=== PATIENT | male | born 1965 | race Caucasian/White ===

== ENCOUNTER 2023-12-14 22:43 | Inpatient (IN) | payer BC, SELFPAY ==
[2023-12-14 22:50] VITALS: BP 169/99; PULSE 74; TEMP 36.7; O2SAT 99; BMI 32.0
--- NOTE | 2023-12-14 23:58 | ED_ITS ---
HPI - Abdominal Pain General Chief Complaint: Abdominal Pain Stated Complaint: ABD PAIN Time Seen by Provider: 12/14/23 23:54 Source: patient Mode of arrival: walk-in Limitations: no limitations History of Present Illness HPI narrative: developed heart burn last PM. Tried pepto bismol without success. Today tried quincy seltzer and vomited afterwards. No longer has heart burn but has epigastric pain and fullness. No longer nauseated. MD elicited complaint: Reports abdominal pain Related Data Home Medications ?Medication ?Instructions ?Recorded ?Confirmed aspirin 81 mg tablet,delayed 81 mg PO DAILY 12/15/23 12/15/23 release (Enteric Coated Aspirin) atorvastatin 40 mg tablet 40 mg PO DAILY 12/15/23 12/15/23 hydrochlorothiazide 25 mg tablet 25 mg PO DAILY 12/15/23 12/15/23 losartan 100 mg tablet (Cozaar) 100 mg PO DAILY 12/15/23 12/15/23 potassium chloride 10 mEq 20 meq PO DAILY 12/15/23 12/15/23 capsule,extended release Allergies Allergy/AdvReac Type Severity Reaction Status Date / Time No Known Drug Allergies Allergy Verified 12/14/23 22:54 Review of Systems ROS Status of ROS 10 or more systems reviewed and unremark able except as noted in history and below [facility] Medical History (Updated 12/15/23 @ 11:08 by Kimberlee Nguyen NP) Hyperlipidemia ?E78.5 - Hyperlipidemia, unspecified (ICD-10) Hypertension ?I10 - Essential (primary) hypertension (ICD-10) Broken jaw ?S02.609A - Fracture of mandible, unspecified, initial encounter for closed fracture (ICD-10) Hernia of abdominal wall ?K43.9 - Ventral hernia without obstruction or gangrene (ICD-10) Family History Father Family history of myocardial infarction Family history of hypertension Mother Family history of myocardial infarction Family history of hypertension Family history of diabetes mellitus Social History Within the past year, how often did you have a drink containing alcohol: never Within the past year, how often did you have six or more drinks on one occasion: never Score interpretation: A score less than 4 is consistent with normal alcohol consumption. 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 Highest level of school completed/degree received: 12th grade, no diploma Are you now , , , , never or living with a partner: In a typical week, how many times do you talk on the telephone with family, friends, or neighbors: once per week How often do you get together with friends or relatives: once per week How often do you attend caodaism or congregation services: never Do you belong to any clubs or organizations such as caodaism groups unions, [employer] or athletic groups, or school groups: yes Total score: 1 Score interpretation: A score of less than or equal to 1 indicates the most socially isolated. Little interest or pleasure in doing things: not at all Feeling down, depressed, or hopeless: not at all Feel stressed/tense/nervous/anxious/difficulty sleeping: not at all Gender Identity: male Exam Constitutional Vital Signs, click to edit/add: Last Vital Signs Temp 98.6 F 12/15/23 19:33 Pulse 64 12/15/23 19:33 Resp 18 12/15/23 19:33 BP 115/66 12/15/23 19:33 Pulse Ox 92 L 12/15/23 19:33 O2 Del Method Room Air 12/15/23 19:33 Common normals: no apparent distress, average body habitus, oriented x3, no limitations, healthy appearing, alert and well nourished [facility] Common normals: normocephalic and head/scalp atraumatic Eye Common normals: EOMs intact bilaterally and conjunctivae normal Chest Common normals: inspection of chest normal and palpation of chest normal Respiratory Common normals: normal respiratory effort, no retractions, no use of accessory muscles and clear to auscultation bilaterally Cardio Common normals: regular rate, regular rhythm, S1 normal heart sound and S2 normal heart sound GI Other: epigastric tenderness Extremity Common normals: normal to inspection and full ROM Neuro Common normals: oriented x3, CN's II-XII intact bilaterally, moves all extremities and no focal motor deficits Psych Appearance: grossly normal Course Vital Signs Vital signs: Vital Signs Temperature 98.1 F 12/14/23 22:50 Pulse Rate 74 12/14/23 22:50 Respiratory Rate 18 12/14/23 22:50 Blood Pressure 169/99 H 12/14/23 22:50 Pulse Oximetry 99 12/14/23 22:50 Oxygen Delivery Method Room Air 12/14/23 22:50 Temperature 98.6 F 12/15/23 19:33 Pulse Rate 64 12/15/23 19:33 Respiratory Rate 18 12/15/23 19:33 Blood Pressure 115/66 12/15/23 19:33 Pulse Oximetry 92 L 12/15/23 19:33 Oxygen Delivery Method Room Air 12/15/23 19:33 MDM - Abdominal Pain MDM Narrative Medical decision making narrative: patient presents complaining of abdominal pain that started yesterday. Emesis x 1. No fever. Points to mid epigastric area as site of pain. Site is tender without guarding. CT with findings concerning for acute cholecystitis. WBC elevated. Discussed with Dr Mcdonough who requested antibiotics, GB US and admission to hospitalist service. Discussed with hospitalist and patient accepted for admission Lab Data Labs: Lab Results 12/15/23 12/15/23 12/15/23 Range/Units 00:12 03:10 05:01 WBC 19.2 H 17.8 H (4.0-11.0) 10^3/uL RBC 5.04 5.05 (4.70-6.10) 10^6/uL Hgb 15.4 15.5 (14.0-18.0) g/dL Hct 45.9 46.7 (42.0-54.0) % MCV 91.1 92.5 (80.0-94.0) fL MCH 30.6 30.7 (25.9-34.0) pg MCHC 33.6 33.2 (29.9-35.2) g/dL RDW 12.8 13.0 (11.0-15.0) % Plt Count 239 250 (150-450) 10^3/uL MPV 10.4 11.3 (9.5-13.5) fL Neut % (Auto) 81.3 H (43.0-75.0) % Lymph % (Auto) 10.6 L (20.5-60.0) % Wayne % (Auto) 7.5 (1.7-12.0) % Eos % (Auto) 0.1 L (0.9-7.0) % Baso % (Auto) 0.2 (0.2-2.0) % Neut # (Auto) 14.5 H (1.4-6.5) 10^3/uL Lymph # (Auto) 1.9 (1.2-3.8) 10^3/uL Wayne # (Auto) 1.3 H (0.3-0.8) 10^3/uL Eos # (Auto) 0.0 (0.0-0.7) 10^3/uL Baso # (Auto) 0.0 (0.0-0.1) 10^3/uL Abs Immat Gran (auto) 0.05 H (0.00-0.03) 10^3/uL Seg Neuts % (Manual) 85.0 Band Neutrophils % 2.0 (0-5) % Lymphocytes % (Manual) 8.0 L (20.5-60.0) % Atypical Lymphs % (Man) 3.0 % Monocytes % (Manual) 2.0 (1.7-12.0) % Eosinophils % (Manual) 0.0 L (0.9-7.0) % Basophils % (Manual) 0.0 L (0.2-2.0) % Imm/Tot Granulo (auto) 0.3 (0.0-0.5) % Neutrophils # (Manual) 16.32 H (1.4-6.5) 10^3/uL Band Neutrophils # 0.4 H (0.0-0.3) 10^3/uL Lymphocytes # (Manual) 1.53 (1.20-3.80) 10^3/uL Abs Atypical Lymphs Man 0.57 Monocytes # (Manual) 0.38 (0.30-0.80) 10^3/uL Eosinophils # (Manual) 0.00 (0.00-0.70) 10^3/uL Basophils # (Manual) 0.00 (0.00-0.10) 10^3/uL Sodium 137 138 (136-145) mmol/L Potassium 3.7 3.5 (3.5-5.1) mmol/L Chloride 101 100 (98-107) mmol/L Carbon Dioxide 30.4 29.6 (21.0-32.0) mmol/L Anion Gap 9.3 11.9 BUN 19.0 H 19.0 H (7.0-18.0) mg/dL Creatinine 0.97 1.09 (0.70-1.30) mg/dL Est GFR ( Amer) >60 >60 (>=60) Est GFR (Non-Af Amer) >60 >60 (>=60) BUN/Creatinine Ratio 19.6 17.4 Glucose 125 H 123 H (74-106) mg/dL Lactate 2.0 2.1 H (0.4-2.0) mmol/L Calcium 9.9 9.6 (8.5-10.1) mg/dL Total Bilirubin 0.8 1.0 (0.2-1.0) mg/dL AST 13 L 11 L (15-37) U/L ALT 37 37 (16-63) U/L Alkaline Phosphatase 79 77 (46-116) U/L Troponin I High Sens 9.2 (4.0-76.1) pg/mL Total Protein 7.0 6.9 (6.4-8.2) g/dL Albumin 3.7 3.6 (3.4-5.0) g/dL Globulin 3.3 3.3 g/dL Albumin/Globulin Ratio 1.1 1.1 Amylase 40 (25-115) U/L Lipase 27.0 (16.0-77.0) U/L 12/15/23 12/15/23 Range/Units 05:26 09:48 WBC (4.0-11.0) 10^3/uL RBC (4.70-6.10) 10^6/uL Hgb (14.0-18.0) g/dL Hct (42.0-54.0) % MCV (80.0-94.0) fL MCH (25.9-34.0) pg MCHC (29.9-35.2) g/dL RDW (11.0-15.0) % Plt Count (150-450) 10^3/uL MPV (9.5-13.5) fL Neut % (Auto) (43.0-75.0) % Lymph % (Auto) (20.5-60.0) % Wayne % (Auto) (1.7-12.0) % Eos % (Auto) (0.9-7.0) % Baso % (Auto) (0.2-2.0) % Neut # (Auto) (1.4-6.5) 10^3/uL Lymph # (Auto) (1.2-3.8) 10^3/uL Wayne # (Auto) (0.3-0.8) 10^3/uL Eos # (Auto) (0.0-0.7) 10^3/uL Baso # (Auto) (0.0-0.1) 10^3/uL Abs Immat Gran (auto) (0.00-0.03) 10^3/uL Seg Neuts % (Manual) Band Neutrophils % (0-5) % Lymphocytes % (Manual) (20.5-60.0) % Atypical Lymphs % (Man) % Monocytes % (Manual) (1.7-12.0) % Eosinophils % (Manual) (0.9-7.0) % Basophils % (Manual) (0.2-2.0) % Imm/Tot Granulo (auto) (0.0-0.5) % Neutrophils # (Manual) (1.4-6.5) 10^3/uL Band Neutrophils # (0.0-0.3) 10^3/uL Lymphocytes # (Manual) (1.20-3.80) 10^3/uL Abs Atypical Lymphs Man Monocytes # (Manual) (0.30-0.80) 10^3/uL Eosinophils # (Manual) (0.00-0.70) 10^3/uL Basophils # (Manual) (0.00-0.10) 10^3/uL Sodium (136-145) mmol/L Potassium (3.5-5.1) mmol/L Chloride (98-107) mmol/L Carbon Dioxide (21.0-32.0) mmol/L Anion Gap BUN (7.0-18.0) mg/dL Creatinine (0.70-1.30) mg/dL Est GFR ( Amer) (>=60) Est GFR (Non-Af Amer) (>=60) BUN/Creatinine Ratio Glucose (74-106) mg/dL Lactate 2.3 H* 2.2 H* (0.4-2.0) mmol/L Calcium (8.5-10.1) mg/dL Total Bilirubin (0.2-1.0) mg/dL AST (15-37) U/L ALT (16-63) U/L Alkaline Phosphatase (46-116) U/L Troponin I High Sens (4.0-76.1) pg/mL Total Protein (6.4-8.2) g/dL Albumin (3.4-5.0) g/dL Globulin g/dL Albumin/Globulin Ratio Amylase (25-115) U/L Lipase (16.0-77.0) U/L Imaging Data CT scan - abdomen: Radiologist's impression: ITS Impressions Abdomen/Pelvis CT 12/15/23 00:00 IMPRESSION: 1. Cholelithiasis with a gallstone in the region of the gallbladder neck with gallbladder distention. These findings are concerning for acute cholecystitis. Consider further evaluation with a right upper quadrant examination. 2. Suspected hemangioma in the left hepatic lobe measuring up to 1.8 cm. 3. Scattered colonic diverticula without evidence of acute inflammation. 4. Normal appendix. Electronically authenticated by: Yesenia EDUARDO Date: 12/15/2023 03:04 Chest X-Ray 12/15/23 00:00 IMPRESSION: No acute cardiopulmonary abnormality. Electronically authenticated by: REESE LYONS Date: 12/15/2023 02:42 Upper Quadrant Ultrasound 12/15/23 07:00 IMPRESSION: 1. Cholelithiasis and abnormally dilated common bile duct, but no appreciable inflammatory changes to suggest acute cholecystitis. Negative sonographic Hayes's sign. Electronically authenticated by: ELIUD LEE Date: 12/15/2023 09:24 Discharge Plan Discharge Chief Complaint: Abdominal Pain Clinical Impression: Acute cholecystitis Patient Disposition: Admitted as Observation Discharge Date/Time: 12/15/23 04:55
[2023-12-15] VITALS (8 sets, daily range): BP systolic 115–153; BP diastolic 66–85; PULSE 63–74; TEMP 36.7–37.1; O2SAT 86–98; BMI 32.0
--- NOTE | 2023-12-15 | CT_ITS ---
The [address] [address] Patient Name: LANG HUBBARD MRN: [id number] date: 1965 Sex: M Assigned Patient Location: ER Current Patient Location: Accession/Order Number: [id number] Exam Date: 12/15/2023 00:55 Report Date: 12/15/2023 03:04 At the request of: OLGA RODRÍGUEZ Procedure: CT abdomen pelvis w con EXAM: CT abdomen pelvis w con HISTORY: abdominal pain COMPARISON: None. TECHNIQUE: Axial CT images through the abdomen and pelvis were obtained after the intravenous administration of contrast. Coronal and sagittal reformats were obtained. Dose reduction techniques were achieved by using automated exposure control and/or adjustment of mA and/or kV according to patient size and/or use of iterative reconstruction technique. FINDINGS: There is bibasilar atelectasis. Abdomen: The spleen enhances homogeneously without focal lesion. There is no intra or extrahepatic biliary duct dilatation. There is a 1.8 x 1.6 cm hemangioma in the left hepatic lobe (series 3, image 19). There is cholelithiasis with a gallstone in the region of the gallbladder neck. The gallbladder is distended measuring up to 11.0 cm in length. There are bilateral renal parapelvic cysts. There are scattered colonic diverticula without evidence of acute inflammation. Otherwise, the pancreas, adrenal glands, kidneys, and bowel loops, including the appendix, are unremarkable. There is no mesenteric or retroperitoneal lymphadenopathy. There is a small fat-containing periumbilical hernia. Pelvis: The bladder and rectum are unremarkable. There is no iliac or inguinal lymphadenopathy. There is a small fat-containing left inguinal hernia. There is mild atherosclerotic disease. Bone windows show no aggressive osseous lesions. CT/CT abdomen pelvis w con IMPRESSION: 1. Cholelithiasis with a gallstone in the region of the gallbladder neck with gallbladder distention. These findings are concerning for acute cholecystitis. Consider further evaluation with a right upper quadrant examination. 2. Suspected hemangioma in the left hepatic lobe measuring up to 1.8 cm. 3. Scattered colonic diverticula without evidence of acute inflammation. 4. Normal appendix. Electronically authenticated by: Yesenia EDUARDO Date: 12/15/2023 03:04
--- NOTE | 2023-12-15 | XR_ITS ---
The [place] [id number] Patient Name: LANG HUBBARD MRN: [id number] date: 1965 Sex: M Assigned Patient Location: ER Current Patient Location: ER Accession/Order Number: [id number] Exam Date: 12/15/2023 00:55 Report Date: 12/15/2023 02:42 At the request of: OLGA RODRÍGUEZ Procedure: XR chest 1V XR chest 1V 12/15/2023 12:55 AM EDT CLINICAL INDICATION: Chest pain COMPARISON: CT abdomen and pelvis 12/15/2023 TECHNIQUE: Portable semiupright AP view of the chest. FINDINGS: There are no tubes or implants noted. Borderline enlarged heart. No florid pulmonary interstitial edema. Bibasilar patchy opacities, likely atelectasis. No pneumothorax or pleural effusion. No displaced rib fractures. Osseous structures demonstrate degenerative changes. Soft tissues are grossly normal. XR/XR chest 1V IMPRESSION: No acute cardiopulmonary abnormality. Electronically authenticated by: REESE LYONS Date: 12/15/2023 02:42
[2023-12-15] MEDS: KETOROLAC TROMETHAMINE 30 MG/ML VIAL IVP (00:17)
[2023-12-15 00:21] LABS: Hematocrit 45.9 % (42.0-54.0); Hemoglobin 15.4 g/dL (14.0-18.0); Mean Corpuscular HGB Conc 33.6 g/dL (29.9-35.2); Mean Corpuscular Hemoglobin 30.6 pg (25.9-34.0); Mean Corpuscular Volume 91.1 fL (80.0-94.0); Mean Platelet Volume 10.4 fL (9.5-13.5); Platelet Count 239 10^3/uL (150-450); Red Blood Count 5.04 10^6/uL (4.70-6.10); Red Cell Distribution Width 12.8 % (11.0-15.0); White Blood Count 19.2 10^3/uL (4.0-11.0)
[2023-12-15 00:36] LABS: Alanine Aminotransferase 37 U/L (16-63); Albumin Globulin Ratio 1.1; Albumin Level 3.7 g/dL (3.4-5.0); Alkaline Phosphatase 79 U/L (46-116); Anion Gap 9.3; Aspartate Amino Transferase 13 U/L (15-37); BUN Creatinine Ratio 19.6; Bilirubin Total 0.8 mg/dL (0.2-1.0); Calcium 9.9 mg/dL (8.5-10.1); Carbon Dioxide 30.4 mmol/L (21.0-32.0); Chloride 101 mmol/L (98-107); Estimated GFR (African America >60 (>=60); Estimated GFR (Non-African Ame >60 (>=60); Globulin 3.3 g/dL; Glucose 125 mg/dL (74-106); Potassium 3.7 mmol/L (3.5-5.1); Sodium 137 mmol/L (136-145)
[2023-12-15 00:38] LABS: Amylase 40 U/L (25-115); Troponin I High Sensitivity 9.2 pg/mL (4.0-76.1)
--- NOTE | 2023-12-15 00:39 | PC.NURSE ---
Pt presents to ER for upper abdominal pain Pt states he woke up around 0130 last night and was experiencing heart burn/acid reflux Pt states it continued to bother him throughout the day Pt states he took some alkaseltzer which made him throw up pt states after throwing up the heart burn had decreased however he was left with pain in his upper abdomen Pt states the pain has since increased he had one small bowel movement and has not eaten or drank much at all throughout the day due to the pain pt has no relative medical history
[2023-12-15 00:51] LABS: Atypical Lymphocytes Abs Man 0.57; Band Neutrophils Absolute 0.4 10^3/uL (0.0-0.3); Lymphocytes Absolute Manual 1.53 10^3/uL (1.20-3.80); Monocytes Absolute Manual 0.38 10^3/uL (0.30-0.80); Segmented Neut Absolute Manual 16.32 10^3/uL (1.4-6.5)
[2023-12-15 03:32] LABS: Lactate/Lactic Acid 2.1 mmol/L (0.4-2.0)
[2023-12-15] MEDS: FENTANYL CITRATE/PF 100 MCG/2 ML VIAL 50 MCG IV (04:25)
[2023-12-15] MEDS: PIPERACILLIN SODIUM/TAZOBACTAM 3.375 GM in 0.9 % SODIUM CHLORIDE 50 ML IV ×3 (04:25→19:33)
[2023-12-15] MEDS: 0.9 % SODIUM CHLORIDE 1,000 ML 100 ML IV (05:42)
[2023-12-15 05:43] LABS: Alanine Aminotransferase 37 U/L (16-63); Albumin Globulin Ratio 1.1; Albumin Level 3.6 g/dL (3.4-5.0); Alkaline Phosphatase 77 U/L (46-116); Anion Gap 11.9; Aspartate Amino Transferase 11 U/L (15-37); BUN Creatinine Ratio 17.4; Calcium 9.6 mg/dL (8.5-10.1); Carbon Dioxide 29.6 mmol/L (21.0-32.0); Chloride 100 mmol/L (98-107); Estimated GFR (African America >60 (>=60); Estimated GFR (Non-African Ame >60 (>=60); Globulin 3.3 g/dL; Glucose 123 mg/dL (74-106); Potassium 3.5 mmol/L (3.5-5.1); Sodium 138 mmol/L (136-145); Total Protein 6.9 g/dL (6.4-8.2)
[2023-12-15 05:53] LABS: Lactate/Lactic Acid 2.3 mmol/L (0.4-2.0)
--- NOTE | 2023-12-15 07:00 | US_ITS ---
[address] [address] Patient Name: LANG HUBBARD MRN: [id number] date: 1965 Sex: M Assigned Patient Location: MS Current Patient Location: MS Accession/Order Number: [id number] Exam Date: 12/15/2023 07:15 Report Date: 12/15/2023 09:24 At the request of: ALESIA FUENTES Procedure: US right upper quadrant EXAMINATION: US right upper quadrant HISTORY: Cholecystitis per CT/epigastric pain COMPARISON: CT abdomen pelvis 12/15/2023 TECHNIQUE: Transabdominal evaluation of the right upper quadrant. FINDINGS: LIVER: Normal size and echotexture. Color Doppler demonstrates patent hepatic veins. PORTAL VEIN: Duplex Doppler demonstrates normal hepatopetal flow pattern with flow velocity averaging 22 cm/s. GALLBLADDER: Contains several stones up to 8 mm in diameter. Normal wall thickness, 2 mm. No free fluid. BILIARY: Abnormally dilated common bile duct, 9 mm. No appreciable stones or mass. PANCREASE: No visible mass, abnormal atrophy, or duct dilation. KIDNEY: No hydronephrosis. No visible mass or stones. Size: 9.4 x 5.9 x 6.2 cm US/US right upper quadrant IMPRESSION: 1. Cholelithiasis and abnormally dilated common bile duct, but no appreciable inflammatory changes to suggest acute cholecystitis. Negative sonographic Hayes's sign. Electronically authenticated by: ELIUD LEE Date: 12/15/2023 09:24
[2023-12-15 08:36] LABS: Basophils Percent Auto 0.2 % (0.2-2.0); Eosinophils Percent Auto 0.1 % (0.9-7.0); Hematocrit 46.7 % (42.0-54.0); Hemoglobin 15.5 g/dL (14.0-18.0); Immature Granulocytes Abs Auto 0.05 10^3/uL (0.00-0.03); Immature Granulocytes Pct Auto 0.3 % (0.0-0.5); Lymphocytes Absolute Auto 1.9 10^3/uL (1.2-3.8); Lymphocytes Percent Auto 10.6 % (20.5-60.0); Mean Corpuscular HGB Conc 33.2 g/dL (29.9-35.2); Mean Corpuscular Hemoglobin 30.7 pg (25.9-34.0); Mean Corpuscular Volume 92.5 fL (80.0-94.0); Mean Platelet Volume 11.3 fL (9.5-13.5); Monocytes Absolute Auto 1.3 10^3/uL (0.3-0.8); Monocytes Percent Auto 7.5 % (1.7-12.0); Neutrophils Absolute Auto 14.5 10^3/uL (1.4-6.5); Neutrophils Percent Auto 81.3 % (43.0-75.0); Platelet Count 250 10^3/uL (150-450); Red Blood Count 5.05 10^6/uL (4.70-6.10); White Blood Count 17.8 10^3/uL (4.0-11.0)
--- NOTE | 2023-12-15 09:31 | CA_ITS ---
Patient Name: LANG HUBBARD MR#: [id number] : 1965 Exam Date: 12/15/2023 Ordering Doctor: JAMES GARCIA ECHOCARDIOGRAM REPORT PROCEDURE: CA ECHO DOPPLER COMPLETE INDICATIONS: Murmur, preop eval COMPARISON: None. DESCRIPTION: COMPLETE ECHOCARDIOGRAM Real-time transthoracic echocardiography with 2D, M-mode, spectral and color flow Doppler performed. QUALITY: Technical quality was good. LEFT VENTRICLE: Normal chamber size. Mild concentric left ventricular hypertrophy. LV EF: Global left ventricular systolic function is hyperdynamic; visually estimated ejection fraction is 65-70%. Calculated left ventricular ejection fraction is 76%. No wall motion abnormalities. DIASTOLIC: Diastolic function is indeterminate. ATRIAL SEPTUM: Inadequately seen. LEFT ATRIUM: Mild dilatation. RIGHT ATRIUM: Mild dilatation. RIGHT VENTRICLE: Normal chamber size. Normal right ventricular systolic function. TRICUSPID VALVE: Normal mobility and thickness. No stenosis with trivial regurgitation. Mild pulmonary hypertension. RVSP 43mmHg MITRAL VALVE: Normal mobility and thickness. No evidence of mitral valve stenosis. There is no mitral annular calcification. Mild mitral regurgitation. AORTIC VALVE: Aortic valve appears bicuspid with nodular calcification. Doppler velocity suggests mild to moderate aortic valve stenosis. DVI 0.4, OSCAR 1.2cm2, Vmax 3.3m/s, Mean gradient 25mmHg. Velocities and gradients may be overestimated due to hyperdynamic global left ventricular systolic function. Mild aortic regurgitation. AORTIC ROOT: Normal diameter and appearance. Ascending aorta is mildly dilated measuring 3.9 cm. PULMONIC VALVE: Normal thickness and mobility. No stenosis. Trivial regurgitation. PERICARDIUM: No evidence of pericardial effusion. IVC: Collapses with inspirations. Normal size. CONCLUSION: 1. Global left ventricular systolic function is hyperdynamic; visually estimated ejection fraction is 65 to 70% 2. Normal right ventricular size and systolic function 3. Biatrial enlargement 4. Mildly increased left ventricular wall thickness 5. Mildly increased right ventricular systolic pressure; RVSP 43 mmHg 6. Mild mitral regurgitation 7. The aortic valve appears bicuspid; mild to moderate aortic valve stenosis 8. Mild aortic valve regurgitation Consider transesophageal echocardiogram in the future for further evaluation of the aortic valve Adult Echocardiography Procedure Report Left Ventricle LVEDD (3.7 - 5.6 cm): 4.86 cm LVESD (2.2 - 4.0 cm): 2.87 cm LVIVS thickness (0.6 - 1.2 cm): 1.26 cm LVPW thickness (0.5 - 1.0 cm): 1.07 cm e': 0.12 m/s E - e': 8.02 LVOT Max Gradient: 7.35 mm[Hg], 7.52 mm[Hg] LVOT Area (cm2): 1.36 m/s Peak Velocity (LVOT): 1.36 m/s, 1.37 m/s Mean Velocity (LVOT): 1.01 m/s LVOT Diameter 1.90 cm Left Ventricular Ejection Fraction: 76.45 % Left Atrium LA Volume Index (2D A2C): 36.93 ml/m2 Left Atrium Systolic Dimension: 3.91 cm Mitral Valve MV E to A Ratio: 1.20, 1.20 Mitral Valve A-Wave Peak Velocity: 0.79 m/s Mitral Valve E-Wave Peak Velocity: 0.95 m/s Right Ventricle RV Internal Diastolic Dimension: 4.07 cm, 4.05 cm Aorta AO Root Diam: 3.50 cm Ascending Ao Diam: 3.86 cm Aortic Valve AoV Area (Peak Gonsalo): 1.19 cm2, 1.17 cm2, 1.20 cm2 AoV Area (VTI): 1.27 cm2, 1.22 cm2, 1.26 cm2 Peak Velocity(Antegrade Flow): 3.27 m/s, 3.23 m/s, 3.33 m/s, 3.33 m/s, 3.08 m/s Peak Gradient(Antegrade Flow): 42.83 mm[Hg], 41.72 mm[Hg], 44.25 mm[Hg], 44.25 mm[Hg], 37.85 mm[Hg] Mean Velocity(Antegrade Flow): 2.42 m/s, 2.34 m/s, 2.35 m/s, 2.40 m/s, 2.11 m/s Mean Gradient(Antegrade Flow): 26.02 mm[Hg], 24.61 mm[Hg], 25.32 mm[Hg], 25.91 mm[Hg], 20.88 mm[Hg] Velocity Time Integral: 66.29 cm, 64.21 cm, 65.28 cm, 66.64 cm, 55.93 cm Tricuspid Valve Peak Velocity (Regurgitant Flow): 2.85 m/s, 2.34 m/s, 3.08 m/s Pulmonic Valve Mean Gradient: 2.51 mm[Hg], 3.92 mm[Hg], 4.02 mm[Hg] Mean Velocity: 0.76 m/s, 0.95 m/s, 0.96 m/s Peak Velocity: 1.18 m/s Peak Gradient: 4.19 mm[Hg], 6.65 mm[Hg], 6.15 mm[Hg] Right Atrium Right Atrium Systolic Pressure: 100.42 ml, 100.42 ml Dictated by: Yoana Agudelo M.D. on 12/15/2023 at 15:35 Approved by: Yoana Agudelo M.D. on 12/15/2023 at 15:43
--- NOTE | 2023-12-15 09:48 | CM.NOTE ---
Rounds made with Dr. Her, awaiting consult from general surgery for further recommendations. Pt continues with abdominal pain.
[2023-12-15] MEDS: LACTATED RINGER'S SOLUTION 1,000 ML 125 ML IV ×2 (09:57→15:58)
[2023-12-15] MEDS: LOSARTAN POTASSIUM 50 MG TABLET 100 MG PO (09:58)
[2023-12-15] MEDS: HYDROCHLOROTHIAZIDE 25 MG TABLET PO (09:58)
[2023-12-15 10:23] LABS: Lactate/Lactic Acid 2.2 mmol/L (0.4-2.0)
--- NOTE | 2023-12-15 10:49 | P.HP_ITS ---
<Statement entered by Terell Her MD - 12/16/23 11:29> This documentation has been reviewed and approved. Patient was seen and evaluated at the bedside. Case discussed with nurse practitioner. Agree with input and findings from nurse practitioner. Additional findings on my exam was an acute abdomen. Positive rebound tenderness on exam. Plan per surgery 1. HPI H&P: HPI History of Present Illness Chief complaint: ABD PAIN Narrative: 12/15/23 5207 This is a 58-year-old male patient with a relatively benign past medical history except for hypertension and hyperlipidemia; who presented to the ED last night complaining of severe and persistent epigastric pain. The patient reports awakening around 1:30 in the morning yesterday with severe heartburn and epigastric tenderness. He was unable to eat due to pain and experienced some dyspepsia. He attempted to take Laurie-Worden but vomited that up. He eventually presented to the ED for further evaluation as his pain was unrelenting. Workup in the ED revealed leukocytosis (19.2), mild dehydration with prerenal azotemia, and borderline lactic acidosis (2.0). All other labs were unremarkable. A CT of the abdomen and pelvis revealed cholelithiasis with an obstructing stone in the neck concerning for acute cholecystitis. Chest x-ray was unremarkable. He was initially admitted early this morning in observation for acute cholecystitis, but we have changed this to inpatient status as surgical intervention is expected and the patient is requiring IV fluids, and IV antibiotics. At the time of my exam the patient is resting quietly in bed. His pain is adequately controlled with IV Toradol at this time. We will add IVP morphine for breakthrough pain if needed. He denies any headache, dizziness, chest pain, or shortness of breath. He continues to note significant epigastric tenderness especially with palpation. He will be seen in consult by Dr. Mcdonough, general surgeon, who was informed of the consult by the ED provider. Opioid HPI Opioid Management Most Recent Opioid Data: Last Pain Scale 1 12/15/23 13:00 Last Pain Assessment 12/15/23 13:00 Last MAR Pain Assessment 12/15/23 12:16 Last ORT Total Score 0 12/15/23 05:18 Last ORT Risk Category Low Risk 12/15/23 05:18 Review of Systems ROS Status of ROS 10 or more systems reviewed and unremark able except as noted in history and below PFSH PFSH Medical History (Updated 12/15/23 @ 11:08 by Kimberlee Nguyen NP) Hyperlipidemia ?E78.5 - Hyperlipidemia, unspecified (ICD-10) Hypertension ?I10 - Essential (primary) hypertension (ICD-10) Broken jaw ?S02.609A - Fracture of mandible, unspecified, initial encounter for closed fracture (ICD-10) Hernia of abdominal wall ?K43.9 - Ventral hernia without obstruction or gangrene (ICD-10) Family History Father Family history of myocardial infarction Family history of hypertension Mother Family history of myocardial infarction Family history of hypertension Family history of diabetes mellitus Social History Within the past year, how often did you have a drink containing alcohol: never Within the past year, how often did you have six or more drinks on one occasion: never Score interpretation: A score less than 4 is consistent with normal alcohol consumption. 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 Little interest or pleasure in doing things: not at all Feeling down, depressed, or hopeless: not at all Feel stressed/tense/nervous/anxious/difficulty sleeping: not at all Gender Identity: male Meds Home Medications and Allergies Home Medications ?Medication ?Instructions ?Recorded ?Confirmed ?Type aspirin 81 mg tablet,delayed 81 mg PO DAILY 12/15/23 12/15/23 History release (Enteric Coated Aspirin) atorvastatin 40 mg tablet 40 mg PO DAILY 12/15/23 12/15/23 History hydrochlorothiazide 25 mg tablet 25 mg PO DAILY 12/15/23 12/15/23 History losartan 100 mg tablet (Cozaar) 100 mg PO DAILY 12/15/23 12/15/23 History potassium chloride 10 mEq 20 meq PO DAILY 12/15/23 12/15/23 History capsule,extended release Allergies Allergy/AdvReac Type Severity Reaction Status Date / Time No Known Drug Allergies Allergy Verified 12/14/23 22:54 Exam Constitutional Vital Signs, click to edit/add: Last Vital Signs Temp 98.7 F 12/15/23 09:09 Pulse 63 12/15/23 09:09 Resp 18 12/15/23 09:09 BP 137/77 12/15/23 09:09 Pulse Ox 98 12/15/23 09:09 O2 Del Method Room Air 12/15/23 09:09 Common normals: no apparent distress, oriented x3, alert and well nourished General appearance: cooperative Orientation/consciousness: Yes awake HENMT Common normals: normocephalic, head/scalp atraumatic, hearing grossly normal bilaterally, external nose normal and moist oral mucous membranes Eye Common normals: PERRL, EOMs intact bilaterally, conjunctivae normal and no scleral icterus Alignment: alignment normal Eyelid: eyelids normal Neck & C-Spine Common normals: full ROM, supple and no JVD Chest Common normals: inspection of chest normal Chest: symmetrical chest wall rise Respiratory Common normals: normal respiratory effort, no retractions, no use of accessory muscles and clear to auscultation bilaterally Effort & inspection: able to speak in complete sentences Cardio Common normals: no JVD, regular rate, regular rhythm, S1 normal heart sound, S2 normal heart sound, no gallops, no clicks, no rub and peripheral pulses 2+ throughout Heart sounds: murmur (HSM 3/6, low pitched) GI Common normals: Normal to inspection, nondistended, normoactive bowel sounds present, soft to palpation, no hepatosplenomegaly, no masses and no bruits Palpation: tender (Epigastric, w/o rebound or guarding) Bladder/kidney exam: bladder normal to palpation Back & Pelvis Common normals: thoracic and lumbar spine normal to inspection Extremity Common normals: normal capillary refill and no pedal edema General: normal exam except as noted; no clubbing and no cyanosis Neuro Michaela Coma Scale: GCS not evaluated Common normals: CN's II-XII intact bilaterally, moves all extremities, no focal motor deficits and no sensory deficits noted Speech: speech normal Motor exam: strength 5/5 throughout Psych Common normals: mental status grossly normal, thought process normal, affect normal and activity/motor behavior normal Results Labs Labs: Short CBC 12/15/23 12/15/23 Range/Units 00:12 05:01 WBC 19.2 H 17.8 H (4.0-11.0) 10^3/uL Hgb 15.4 15.5 (14.0-18.0) g/dL Hct 45.9 46.7 (42.0-54.0) % Plt Count 239 250 (150-450) 10^3/uL BMP 12/15/23 12/15/23 00:12 05:01 Sodium 137 138 Potassium 3.7 3.5 Chloride 101 100 Carbon Dioxide 30.4 29.6 BUN 19.0 H 19.0 H Creatinine 0.97 1.09 Glucose 125 H 123 H Calcium 9.9 9.6 Liver Function 12/15/23 12/15/23 Range/Units 00:12 05:01 Total Bilirubin 0.8 1.0 (0.2-1.0) mg/dL AST 13 L 11 L (15-37) U/L ALT 37 37 (16-63) U/L Alkaline Phosphatase 79 77 (46-116) U/L Albumin 3.7 3.6 (3.4-5.0) g/dL Pulse Oximetry Attestation: I have reviewed the pertinent pulse oximetry results. Imaging Chest x-ray: Attestation: I have reviewed the pertinent imaging results. Radiologist's impression: IMPRESSION: No acute cardiopulmonary abnormality. CT scan - abdomen: Attestation: I have reviewed the pertinent imaging results. Radiologist's impression: IMPRESSION: 1. Cholelithiasis with a gallstone in the region of the gallbladder neck with gallbladder distention. These findings are concerning for acute cholecystitis. Consider further evaluation with a right upper quadrant examination. 2. Suspected hemangioma in the left hepatic lobe measuring up to 1.8 cm. 3. Scattered colonic diverticula without evidence of acute inflammation. 4. Normal appendix. US - abdomen: Attestation: I have reviewed the pertinent imaging results. Radiologist's impression: IMPRESSION: 1. Cholelithiasis and abnormally dilated common bile duct, but no appreciable inflammatory changes to suggest acute cholecystitis. Negative sonographic Hayes's sign. Assessment and Plan Assessment and Plan (1) Acute cholecystitis: Assessment and Plan: Acute * Adm Inpatient * We expect greater than a 2 midnight stay for medically necessary hospital care including IV ABX, IVFs, specialty surgical intervention/care * C/s Dr Mcdonough, general surgeon - we appreciate his assistance with this pt's care * Pt is NPO for possible surgery later today * Preop eval - CXR WNL. EKG and 2D Echo ordered and are pending * NS IVF given overnight at 100/hr - change to LR at 125/hr d/t dehydration and lactic acidosis * IVPB Zosyn for underlying infectious process w/ persistent leukocytosis * Toradol PRN for pain, MS IVP for breakthrough pain not controlled by Toradol * Zofran IV for nausea * CBC, CMP daily (2) Dehydration: Assessment and Plan: Acute * D/t poor oral intake x 24 hrs 2/2 acute cholecystitis * Pre-renal azotemia noted on labs * Increase IVF rate to 125/hr * CMP daily (3) Lactic acidosis: Assessment and Plan: Acute * Lactic acid initially borderline at 2.0 in ED, slowly rising to 2.3 today * Repeat in 4 hrs to monitor * Increased IVF rate as noted above (4) Hypertension: Assessment and Plan: Chronic * Continue home Losartan and HCTZ w/ small sips Qualifiers: Hypertension type: primary hypertension Qualified Code(s): I10 - Essential (primary) hypertension (5) Hyperlipidemia: Assessment and Plan: Chronic * Continue home statin Qualifiers: Hyperlipidemia type: unspecified Qualified Code(s): E78.5 - Hyperlipidemia, unspecified
--- NOTE | 2023-12-15 11:06 | ECG_ITS ---
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
[2023-12-15] MEDS: PANTOPRAZOLE SODIUM 40 MG VIAL IV (12:12)
[2023-12-15] MEDS: ACETAMINOPHEN 325 MG TABLET 650 MG PO (12:16)
[2023-12-15 13:14] LABS: Lactate/Lactic Acid 1.6 mmol/L (0.4-2.0)
--- NOTE | 2023-12-15 13:49 | P.GSCN_ITS ---
History of Present Illness Consult details Consult date: 12/15/23 Reason for consult: gallstones Narrative: 58 y/o male presented to ED this morning after 24 hours of continuous epigastric pressure associated with vomiting on 1 occasion. He described the pain as a fullness; he tried Laurie-Umbarger without any effect. No hematochezia or any history of ulcer disease but has occasional reflux about once a year. Does not take any medication for this regularly. He currently rates his pain as a 2 out of 10 but when he came to the ED it was a 10 out of 10. He has not had pain medicine since then. He had eaten at [employer] on Thursday and had pork chops and fried shrimp and then went home and had pizza rolls and then became ill early Thursday morning awakening him from sleep. He has had this problem off and on for a few years. His PCP is with Dr. Jeffery Suero a nurse practitioner Azeb Hilliard. He had a CT scan of the abdomen and pelvis which showed probable acute cholecystitis although they recommended an ultrasound which was done earlier today and shows a stone in the neck of the gallbladder without acute inflammation but slightly dilated common bile duct. He is also found to have an incarcerated umbilical hernia. That has been present for years. All liver enzymes were grossly normal except for one of the SGPT. He denies any fevers or chills. His white count was 19,000 on admission and is currently down to 17,000 and he is currently on intravenous antibiotics and is NPO. He denies tobacco use or alcohol use on a regular basis. 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 Review of Systems ROS Status of ROS 10 or more systems reviewed and unremark able except as noted in history and below [facility] Medical History (Updated 12/15/23 @ 11:08 by Kimberlee Nguyen NP) Hyperlipidemia ?E78.5 - Hyperlipidemia, unspecified (ICD-10) Hypertension ?I10 - Essential (primary) hypertension (ICD-10) Broken jaw ?S02.609A - Fracture of mandible, unspecified, initial encounter for closed fracture (ICD-10) Hernia of abdominal wall ?K43.9 - Ventral hernia without obstruction or gangrene (ICD-10) Family History Father Family history of myocardial infarction Family history of hypertension Mother Family history of myocardial infarction Family history of hypertension Family history of diabetes mellitus Social History Within the past year, how often did you have a drink containing alcohol: never Within the past year, how often did you have six or more drinks on one occasion: never Score interpretation: A score less than 4 is consistent with normal alcohol consumption. 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 Highest level of school completed/degree received: 12th grade, no diploma Are you now , , , , never or living with a partner: In a typical week, how many times do you talk on the telephone with family, friends, or neighbors: once per week How often do you get together with friends or relatives: once per week How often do you attend scientologist or gnosticism services: never Do you belong to any clubs or organizations such as scientologist groups unions, [employer] or athletic groups, or school groups: yes Total score: 1 Score interpretation: A score of less than or equal to 1 indicates the most socially isolated. Little interest or pleasure in doing things: not at all Feeling down, depressed, or hopeless: not at all Feel stressed/tense/nervous/anxious/difficulty sleeping: not at all Gender Identity: male Meds Home Medications and Allergies Home Medications ?Medication ?Instructions ?Recorded ?Confirmed ?Type aspirin 81 mg tablet,delayed 81 mg PO DAILY 12/15/23 12/15/23 History release (Enteric Coated Aspirin) atorvastatin 40 mg tablet 40 mg PO DAILY 12/15/23 12/15/23 History hydrochlorothiazide 25 mg tablet 25 mg PO DAILY 12/15/23 12/15/23 History losartan 100 mg tablet (Cozaar) 100 mg PO DAILY 12/15/23 12/15/23 History potassium chloride 10 mEq 20 meq PO DAILY 12/15/23 12/15/23 History capsule,extended release Allergies Allergy/AdvReac Type Severity Reaction Status Date / Time No Known Drug Allergies Allergy Verified 12/14/23 22:54 Exam Constitutional Vital Signs, click to edit/add: Last Vital Signs Temp 98.7 F 12/15/23 09:09 Pulse 63 12/15/23 09:09 Resp 18 12/15/23 09:09 BP 137/77 12/15/23 09:09 Pulse Ox 98 12/15/23 09:09 O2 Del Method Room Air 12/15/23 09:09 Documenting provider has reviewed patient's vital signs: yes Common normals: no apparent distress, average body habitus, oriented x3, healthy appearing, alert and well nourished General appearance: cooperative and comfortable HENMT Common normals: normocephalic, moist oral mucous membranes and oropharynx normal Eye Common normals: EOMs intact bilaterally and no scleral icterus Respiratory Common normals: normal respiratory effort and clear to auscultation bilaterally Cardio Common normals: regular rate, regular rhythm and no murmurs GI Common normals: Normal to inspection, nondistended, normoactive bowel sounds present Inspection: central obesity and visible herniation (Incarcerated hernia umbilical 2 cm) Palpation: tender Details: RUQ and Hayes's sign and guarding Extremity Common normals: normal to inspection Neuro Common normals: oriented x3, CN's II-XII intact bilaterally and moves all extremities Results Labs Labs: Abnormal lab results 12/15/23 12/15/23 12/15/23 Range/Units 00:12 03:10 05:01 WBC 19.2 H 17.8 H (4.0-11.0) 10^3/uL Neut % (Auto) 81.3 H (43.0-75.0) % Lymph % (Auto) 10.6 L (20.5-60.0) % Eos % (Auto) 0.1 L (0.9-7.0) % Neut # (Auto) 14.5 H (1.4-6.5) 10^3/uL [place] # (Auto) 1.3 H (0.3-0.8) 10^3/uL Abs Immat Gran (auto) 0.05 H (0.00-0.03) 10^3/uL Lymphocytes % (Manual) 8.0 L (20.5-60.0) % Eosinophils % (Manual) 0.0 L (0.9-7.0) % Basophils % (Manual) 0.0 L (0.2-2.0) % Neutrophils # (Manual) 16.32 H (1.4-6.5) 10^3/uL Band Neutrophils # 0.4 H (0.0-0.3) 10^3/uL BUN 19.0 H 19.0 H (7.0-18.0) mg/dL Glucose 125 H 123 H (74-106) mg/dL Lactate 2.1 H (0.4-2.0) mmol/L AST 13 L 11 L (15-37) U/L 12/15/23 12/15/23 Range/Units 05:26 09:48 WBC (4.0-11.0) 10^3/uL Neut % (Auto) (43.0-75.0) % Lymph % (Auto) (20.5-60.0) % Eos % (Auto) (0.9-7.0) % Neut # (Auto) (1.4-6.5) 10^3/uL [place] # (Auto) (0.3-0.8) 10^3/uL Abs Immat Gran (auto) (0.00-0.03) 10^3/uL Lymphocytes % (Manual) (20.5-60.0) % Eosinophils % (Manual) (0.9-7.0) % Basophils % (Manual) (0.2-2.0) % Neutrophils # (Manual) (1.4-6.5) 10^3/uL Band Neutrophils # (0.0-0.3) 10^3/uL BUN (7.0-18.0) mg/dL Glucose (74-106) mg/dL Lactate 2.3 H* 2.2 H* (0.4-2.0) mmol/L AST (15-37) U/L Diabetes panel 12/15/23 12/15/23 Range/Units 00:12 05:01 Sodium 137 138 (136-145) mmol/L Potassium 3.7 3.5 (3.5-5.1) mmol/L Chloride 101 100 (98-107) mmol/L Carbon Dioxide 30.4 29.6 (21.0-32.0) mmol/L BUN 19.0 H 19.0 H (7.0-18.0) mg/dL Creatinine 0.97 1.09 (0.70-1.30) mg/dL Glucose 125 H 123 H (74-106) mg/dL Calcium 9.9 9.6 (8.5-10.1) mg/dL AST 13 L 11 L (15-37) U/L ALT 37 37 (16-63) U/L Alkaline Phosphatase 79 77 (46-116) U/L Total Protein 7.0 6.9 (6.4-8.2) g/dL Albumin 3.7 3.6 (3.4-5.0) g/dL Calcium panel 12/15/23 12/15/23 Range/Units 00:12 05:01 Calcium 9.9 9.6 (8.5-10.1) mg/dL Albumin 3.7 3.6 (3.4-5.0) g/dL Pituitary panel 12/15/23 12/15/23 Range/Units 00:12 05:01 Sodium 137 138 (136-145) mmol/L Potassium 3.7 3.5 (3.5-5.1) mmol/L Chloride 101 100 (98-107) mmol/L Carbon Dioxide 30.4 29.6 (21.0-32.0) mmol/L BUN 19.0 H 19.0 H (7.0-18.0) mg/dL Creatinine 0.97 1.09 (0.70-1.30) mg/dL Glucose 125 H 123 H (74-106) mg/dL Calcium 9.9 9.6 (8.5-10.1) mg/dL Adrenal panel 12/15/23 12/15/23 Range/Units 00:12 05:01 Sodium 137 138 (136-145) mmol/L Potassium 3.7 3.5 (3.5-5.1) mmol/L Chloride 101 100 (98-107) mmol/L Carbon Dioxide 30.4 29.6 (21.0-32.0) mmol/L BUN 19.0 H 19.0 H (7.0-18.0) mg/dL Creatinine 0.97 1.09 (0.70-1.30) mg/dL Glucose 125 H 123 H (74-106) mg/dL Calcium 9.9 9.6 (8.5-10.1) mg/dL Total Bilirubin 0.8 1.0 (0.2-1.0) mg/dL AST 13 L 11 L (15-37) U/L ALT 37 37 (16-63) U/L Alkaline Phosphatase 79 77 (46-116) U/L Total Protein 7.0 6.9 (6.4-8.2) g/dL Albumin 3.7 3.6 (3.4-5.0) g/dL All other labs normal. Imaging Abdomen CT scan report/results: report reviewed Abdominal ultrasound report/results: report reviewed Assessment and Plan Assessment and Plan (1) Acute cholecystitis: (2) Dehydration: (3) Lactic acidosis: (4) Hypertension: Qualifiers: Hypertension type: primary hypertension Qualified Code(s): I10 - Essential (primary) hypertension (5) Hyperlipidemia: Qualifiers: Hyperlipidemia type: unspecified Qualified Code(s): E78.5 - Hyperlipidemia, unspecified Plan Robotic cholecystectomy with IC-Green and repair of umbilical hernia incarcerated. Risks benefits and alternatives to surgery could include infection, bleeding, bile duct injury, blood clots to legs or lungs, recurrence of the hernia, pneumonia, heart attack, stroke, and/or . He and his voiced understanding of all the above and wished to proceed.
[2023-12-15] MEDS: INDOCYANINE GREEN 25 MG VIAL INJ (14:17)
--- NOTE | 2023-12-15 14:22 | PM.GSPRC ---
Date of procedure: 12/15/23 Indications for Procedure: Acute cholecystitis with cholelithiasis Incarcerated umbilical hernia Pre-op diagnosis: Acute cholecystitis with cholelithiasis/incarcerated umbilical hernia Post-op diagnosis: same as pre-op Procedure: Robotic cholecystectomy with IC-Green Repair of incarcerated umbilical hernia without mesh primary Findings: Acute gangrenous and empyematous cholecystitis with cholelithiasis Incarcerated umbilical hernia with omentum Anesthesia: COLEEN Surgeon: Mick Mcdonough Procedure Summary: After again explaining the risks and benefits of the procedure in the preoperative care unit consent was obtained. ?The patient was taken back to the operative room and placed on the operative room table. General endotracheal anesthesia was induced and preoperative antibiotics were given. ?Appropriate time-out was performed. ?Right arm was?tucked at the side. ?Then the bed was positioned appropriately. ?The abdomen was prepped and draped in normal sterile fashion. A periumbilical incision was made. ?Dissection was carried down to the fascia. ?Fascia was elevated and hernia sac was scored at its base. The sac removed from the underside of the umbilicus. The sac was entered and had incarcerated omentum within it. The omentum could not be reduced therefore hemostats were placed across the portion that was incarcerated and was clamped and suture-ligated with 0 Vicryl suture ties. This was then returned to the peritoneal cavity. A 12 mm port was placed into the abdomen and the abdomen was insufflated, there were no complications with insufflation. ?The scope and camera was brought in and then 3 more ports were placed. An 8?mm port was placed in the right lateral position. Two additional?8 mm Davinci ports were placed, 8 cm to the left and one to the right of the umbilicus. ?The patient was then placed in reverse Trendelenburg position and slightly turned to the left. The [employer] robot was docked. The 4th arm was used to grasp the dome of the gallbladder superiorly. ?The peritoneal attachments were taken down with meticulous dissection laterally and medially from the gallbladder. The gallbladder was taken down in retrograde fashion after it had burst open due to being so edematous and swollen. Suction was carried out. There was clear bile. ?At this point the infundibular gallbladder was retracted laterally and a critical view was obtained. ?With the cystic duct inferiorly cystic artery medially and the liver posteriorly. ?Two clips were placed on the patient side and 1 on the specimen side of both the cystic duct and the cystic artery. ?These were then excised. ?The remainder of the gallbladder was taken off of the gallbladder fossa using electrocautery. The gallbladder was then removed through the umbilical port using Endo-Catch bag. ?The gallbladder fossa was visualized again to confirm no bleeding and no leak from the cystic duct. The robot was undocked from the patient. The abdomen was deinsufflated.? The umbilical hernia was closed with a [id number] 0 Vicryl in interrupted fashion.. The skin was closed at all the incisions with 4 0 Monocryl. All incisions and underlying muscle was anesthetized with local anesthetic.?Dermabond was then placed over the incisions. The patient was extubated and had no immediate postoperative complications. Patient was taken to the PACU in stable condition. Telecine Operator: YUSEF Heart Estimated blood loss (mL): 50 Specimens: Gallbladder and stones Complications: No Condition: stable Disposition: PACU
[2023-12-15] MEDS: BUPIVACAINE HCL 0.5% PF 50 MG/10 ML VIAL 20 ML INJ (16:20)
[2023-12-15] MEDS: OXYCODONE HCL/ACETAMINOPHEN 5MG/325MG 1 TAB PO (18:31)
[2023-12-16] VITALS (10 sets, daily range): BP systolic 91–121; BP diastolic 57–78; PULSE 62–72; TEMP 36.1–36.9; O2SAT 90–97
[2023-12-16] MEDS: LACTATED RINGER'S SOLUTION 1,000 ML 125 ML IV ×2 (00:20→08:35)
--- NOTE | 2023-12-16 01:23 | PC.NURSE ---
Patient oxygen was 84-86 % Room air. I C&DB Patient for several minutes. I had to apply 3 liters Oxygen via [place]. He sats are now 94% with 3liters. I had RT assess him also. Notified Adolfo Brady CFO and he ordered Supplemental Oxygen and A PEP .Will continue to monitor Patient's condition.
[2023-12-16] MEDS: OXYCODONE HCL/ACETAMINOPHEN 5MG/325MG 1 TAB PO ×3 (02:05→18:16)
[2023-12-16] MEDS: PIPERACILLIN SODIUM/TAZOBACTAM 3.375 GM in 0.9 % SODIUM CHLORIDE 50 ML IV ×3 (02:33→19:56)
--- NOTE | 2023-12-16 04:50 | RESP.RT ---
decreased down to 2L
[2023-12-16 05:25] LABS: Basophils Percent Auto 0.2 % (0.2-2.0); Hematocrit 40.4 % (42.0-54.0); Hemoglobin 13.2 g/dL (14.0-18.0); Immature Granulocytes Abs Auto 0.11 10^3/uL (0.00-0.03); Immature Granulocytes Pct Auto 0.6 % (0.0-0.5); Lymphocytes Absolute Auto 1.2 10^3/uL (1.2-3.8); Lymphocytes Percent Auto 6.6 % (20.5-60.0); Mean Corpuscular HGB Conc 32.7 g/dL (29.9-35.2); Mean Corpuscular Hemoglobin 30.1 pg (25.9-34.0); Mean Platelet Volume 11.2 fL (9.5-13.5); Monocytes Absolute Auto 1.2 10^3/uL (0.3-0.8); Monocytes Percent Auto 6.1 % (1.7-12.0); Neutrophils Absolute Auto 16.2 10^3/uL (1.4-6.5); Neutrophils Percent Auto 86.5 % (43.0-75.0); Platelet Count 191 10^3/uL (150-450); Red Blood Count 4.39 10^6/uL (4.70-6.10); Red Cell Distribution Width 13.2 % (11.0-15.0); White Blood Count 18.8 10^3/uL (4.0-11.0)
[2023-12-16 05:46] LABS: Alanine Aminotransferase 51 U/L (16-63); Albumin Globulin Ratio 0.8; Albumin Level 2.7 g/dL (3.4-5.0); Alkaline Phosphatase 66 U/L (46-116); Anion Gap 11.3; Aspartate Amino Transferase 30 U/L (15-37); BUN Creatinine Ratio 17.3; Bilirubin Total 1.2 mg/dL (0.2-1.0); Calcium 8.6 mg/dL (8.5-10.1); Carbon Dioxide 27.9 mmol/L (21.0-32.0); Chloride 99 mmol/L (98-107); Estimated GFR (African America >60 (>=60); Estimated GFR (Non-African Ame >60 (>=60); Globulin 3.3 g/dL; Glucose 119 mg/dL (74-106); Potassium 3.2 mmol/L (3.5-5.1); Sodium 135 mmol/L (136-145)
--- NOTE | 2023-12-16 07:58 | XR_ITS ---
The [address] [address] Patient Name: LANG HUBBARD MRN: [id number] date: 1965 Sex: M Assigned Patient Location: [place] Current Patient Location: [place] Accession/Order Number: [id number] Exam Date: 12/16/2023 08:05 Report Date: 12/16/2023 08:17 At the request of: JAMES GARCIA Procedure: XR chest 1V EXAM: XR chest 1V HISTORY: Hypoxia COMPARISON: 12/15/2023 TECHNIQUE: AP portable FINDINGS: LUNGS: No significant pulmonary parenchymal abnormalities. Low lung volumes VASCULATURE: No increased pulmonary vasculature. PLEURA: No pneumothorax, effusion, or pleural thickening. CARDIAC: No cardiomegaly or cardiac silhouette abnormality. MEDIASTINUM: No visible mass or adenopathy. BONES: No fracture or visible bone lesion. OTHER: Negative. XR/XR chest 1V IMPRESSION: Low volume exam, clear lungs Electronically authenticated by: LAKISHA SANCHEZ Date: 12/16/2023 08:17
[2023-12-16] MEDS: LOSARTAN POTASSIUM 50 MG TABLET 100 MG PO (08:35)
[2023-12-16] MEDS: HYDROCHLOROTHIAZIDE 25 MG TABLET PO (08:36)
--- NOTE | 2023-12-16 09:34 | CM.NOTE ---
Rounds made with Dr. Her. Possible plan for discharge after Surgery evaluates. Await further plan from Surgery.
[2023-12-16] MEDS: PANTOPRAZOLE SODIUM 40 MG VIAL IV (11:37)
--- NOTE | 2023-12-16 12:10 | P.PN_ITS ---
<Statement entered by Terell Her MD - 12/17/23 20:45> This documentation has been reviewed and approved. Pt seen and exam,ined at bedside, agree with input and finding from Nurse practitioner. Additional note: Acute post op blood loss anemia Progress Note: Subjective Subjective Interval history: 12/16/23 0845 POD #1. The patient is sitting up in bed at the time of my exam having just finished a light breakfast of yogurt. He reports significant improvement of his abdominal discomfort, and only notes mild radha-incisional tenderness at this time. I reviewed with the patient and his spouse that Dr. Mcdonough noted a gangrenous gallbladder that ruptured on removal in his procedure note from yesterday. The patient's leukocytosis is slightly up from yesterday but this is likely at least in part a reactive process due to surgery. He has remained afebrile overnight. Close monitoring of his VS and labs is still indicated, and he needs to remain in the hospital for at least another 24 to 48 hours for continued monitoring due to his risk for sepsis and acute decompensation. Nursing noted that the patient desaturated overnight when he was sleeping soundly and required O2 supplementation for a few hours. The patient's spouse notes that he frequently stops breathing during sleep at home and undiagnosed LLOYD is suspected. Exam Constitutional Vital Signs, click to edit/add: Last Vital Signs Temp 97.0 F L 12/16/23 07:00 Pulse 72 12/16/23 07:46 Resp 16 12/16/23 07:46 BP 112/70 12/16/23 07:00 Pulse Ox 95 12/16/23 10:43 O2 Del Method Room Air 12/16/23 10:43 O2 Flow Rate 3 12/16/23 04:50 Common normals: no apparent distress, oriented x3 and alert General appearance: cooperative Orientation/consciousness: Yes awake HENRI Common normals: normocephalic, head/scalp atraumatic and hearing grossly normal bilaterally Eye Common normals: PERRL, EOMs intact bilaterally, conjunctivae normal and no scleral icterus General eye: normal appearance of both eyes Chest Common normals: inspection of chest normal Chest: symmetrical chest wall rise Respiratory Common normals: normal respiratory effort, no use of accessory muscles and clear to auscultation bilaterally Effort & inspection: able to speak in complete sentences Auscultation: diminished lung sounds (BLL) Cardio Common normals: regular rate, regular rhythm, S1 normal heart sound, S2 normal heart sound and peripheral pulses 2+ throughout Heart sounds: murmur (HSM 3/6) GI Common normals: Normal to inspection, nondistended, normoactive bowel sounds present, soft to palpation and no hepatosplenomegaly Palpation: tender (Radha-incisional to multiple sites, mild) Bladder/kidney exam: bladder normal to palpation Extremity Common normals: normal to inspection and no calf tenderness General: no clubbing, no cyanosis and no edema Neuro Common normals: CN's II-XII intact bilaterally, moves all extremities, no focal motor deficits and no sensory deficits noted Psych Common normals: mental status grossly normal Progress Note: Objective Labs Labs: Short CBC 12/16/23 Range/Units 04:29 WBC 18.8 H (4.0-11.0) 10^3/uL Hgb 13.2 L (14.0-18.0) g/dL Hct 40.4 L (42.0-54.0) % Plt Count 191 (150-450) 10^3/uL BMP 12/16/23 04:29 Sodium 135 L Potassium 3.2 L Chloride 99 Carbon Dioxide 27.9 BUN 18.0 Creatinine 1.04 Glucose 119 H Calcium 8.6 Liver Function 12/16/23 Range/Units 04:29 Total Bilirubin 1.2 H (0.2-1.0) mg/dL AST 30 (15-37) U/L ALT 51 (16-63) U/L Alkaline Phosphatase 66 (46-116) U/L Albumin 2.7 L (3.4-5.0) g/dL Progress Note: A&P Assessment and Plan (1) Acute cholecystitis: Assessment and Plan: Acute * Improved * Pain resolved except for mild post op pain * Leukocytosis persists, but pt remains afebrile * C/s Dr Mcdonough, general surgeon - we appreciate his assistance with this pt's care * POD#1 from lap cholecystectomy and hernia repair * GB reportedly gangrenous and ruptured intraoperatively * Reduce LR IVF to 75/hr - continue until pt is eating/drinking normally * Continue IVPB Zosyn for underlying infectious process w/ persistent leukocytosis * Continue PO Motrin and Percocet for post op pain per Dr Grillis' orders. IVP Dilaudid for breakthrough pain * Continue Zofran IV for nausea * CBC, CMP daily (2) Dehydration: Assessment and Plan: Acute * Improving * Continue IVF but decrease rate to 75/hr as pt is slowly starting to eat and drink * CMP daily (3) Lactic acidosis: Assessment and Plan: Acute * Resolved * Final lactic acid down to 1.6 yesterday (4) Hypokalemia: Assessment and Plan: Acute * Mild, K+ 3.2 on AM labs * Resume home daily KCL supplement in AM * KCL 40 meq PO x 1 now * CMP daily (5) Aortic stenosis due to bicuspid aortic valve: Assessment and Plan: Chronic * Mild to moderate stenosis w/ bicuspid valve noted on pre-op eval 2D Echo * Defer to PCP for monitoring as an outpatient (6) Hypertension: Assessment and Plan: Chronic * Continue home Losartan - BP well controlled on losartan alone * Hold home HCTZ d/t dehydration Qualifiers: Hypertension type: primary hypertension Qualified Code(s): I10 - Essential (primary) hypertension (7) Hyperlipidemia: Assessment and Plan: Chronic * Continue home statin Qualifiers: Hyperlipidemia type: unspecified Qualified Code(s): E78.5 - Hyperlipidemia, unspecified
[2023-12-16] MEDS: POTASSIUM CHLORIDE 10 MEQ ER TABLET 40 MEQ PO (13:39)
--- NOTE | 2023-12-16 15:40 | PM.GSPN ---
Progress Note: A&P Assessment and Plan (1) Acute cholecystitis: (2) Dehydration: (3) Lactic acidosis: (4) Hypokalemia: (5) Aortic stenosis due to bicuspid aortic valve: (6) Hypertension: Qualifiers: Hypertension type: primary hypertension Qualified Code(s): I10 - Essential (primary) hypertension (7) Hyperlipidemia: Qualifiers: Hyperlipidemia type: unspecified Qualified Code(s): E78.5 - Hyperlipidemia, unspecified Plan Continue IV antibiotics and postoperative care and encourage ambulation Subjective Subjective Patient reports: no new complaints, feels better, tolerating a regular diet and flatus Interval history: Spoke to patient by phone and I read hospitalist's note. Patient doing better but white blood count remains elevated and I agree with IV antibiotics until white blood count decrease his substantially Due to gangrenous cholecystitis. Exam Constitutional Vital Signs, click to edit/add: Last Vital Signs Temp 97.8 F 12/16/23 14:00 Pulse 65 12/16/23 14:00 Resp 16 12/16/23 14:00 BP 121/78 12/16/23 14:00 Pulse Ox 92 L 12/16/23 14:00 O2 Del Method Room Air 12/16/23 14:00 O2 Flow Rate 3 12/16/23 04:50
[2023-12-16] MEDS: LACTATED RINGER'S SOLUTION 1,000 ML 75 ML IV (16:38)
[2023-12-16] MEDS: ATORVASTATIN CALCIUM 40 MG TABLET PO (19:56)
[2023-12-17] MEDS: PIPERACILLIN SODIUM/TAZOBACTAM 3.375 GM in 0.9 % SODIUM CHLORIDE 50 ML IV (03:26)
[2023-12-17 04:00] VITALS: BP 133/76; PULSE 69; TEMP 37.1; O2SAT 93
[2023-12-17 04:49] VITALS: O2SAT 93
[2023-12-17 05:20] LABS: Basophils Percent Auto 0.2 % (0.2-2.0); Eosinophils Absolute Auto 0.1 10^3/uL (0.0-0.7); Eosinophils Percent Auto 0.6 % (0.9-7.0); Hematocrit 40.6 % (42.0-54.0); Hemoglobin 13.2 g/dL (14.0-18.0); Immature Granulocytes Abs Auto 0.02 10^3/uL (0.00-0.03); Immature Granulocytes Pct Auto 0.2 % (0.0-0.5); Lymphocytes Absolute Auto 1.9 10^3/uL (1.2-3.8); Lymphocytes Percent Auto 15.7 % (20.5-60.0); Mean Corpuscular HGB Conc 32.5 g/dL (29.9-35.2); Mean Corpuscular Hemoglobin 30.3 pg (25.9-34.0); Mean Corpuscular Volume 93.1 fL (80.0-94.0); Mean Platelet Volume 10.9 fL (9.5-13.5); Monocytes Absolute Auto 0.9 10^3/uL (0.3-0.8); Neutrophils Absolute Auto 9.4 10^3/uL (1.4-6.5); Neutrophils Percent Auto 76.3 % (43.0-75.0); Platelet Count 202 10^3/uL (150-450); Red Blood Count 4.36 10^6/uL (4.70-6.10); Red Cell Distribution Width 12.9 % (11.0-15.0); White Blood Count 12.3 10^3/uL (4.0-11.0)
[2023-12-17 05:45] LABS: Alanine Aminotransferase 45 U/L (16-63); Albumin Globulin Ratio 0.7; Albumin Level 2.7 g/dL (3.4-5.0); Alkaline Phosphatase 67 U/L (46-116); Anion Gap 10.1; Aspartate Amino Transferase 18 U/L (15-37); BUN Creatinine Ratio 13.7; Bilirubin Total 0.9 mg/dL (0.2-1.0); Carbon Dioxide 28.4 mmol/L (21.0-32.0); Chloride 100 mmol/L (98-107); Estimated GFR (African America >60 (>=60); Estimated GFR (Non-African Ame >60 (>=60); Globulin 3.9 g/dL; Glucose 97 mg/dL (74-106); Potassium 3.5 mmol/L (3.5-5.1); Sodium 135 mmol/L (136-145); Total Protein 6.6 g/dL (6.4-8.2)
[2023-12-17] MEDS: LACTATED RINGER'S SOLUTION 1,000 ML 75 ML IV (06:01)
[2023-12-17 08:00] VITALS: BP 150/79; PULSE 68; TEMP 36.8; O2SAT 94
[2023-12-17] MEDS: ACETAMINOPHEN 325 MG TABLET 650 MG PO (08:25)
[2023-12-17] MEDS: LOSARTAN POTASSIUM 50 MG TABLET 100 MG PO (08:25)
[2023-12-17] MEDS: POTASSIUM CHLORIDE 10 MEQ ER TABLET 20 MEQ PO (08:25)
[2023-12-17] MEDS: HYDROCHLOROTHIAZIDE 25 MG TABLET PO (09:30)
--- NOTE | 2023-12-17 09:30 | CM.NOTE ---
Pt up ad kalen in room when rounding with Dr. Her, discussed with pt discharge to home today. Pt will discharge on oral antibiotics. No other discharge needs identified.
--- NOTE | 2023-12-17 10:56 | P.DS_ITS ---
<Statement entered by Terell Her MD - 12/17/23 20:50> This documentation has been reviewed and approved. Pt seen and examined at bedside, agree with input and finding from Nurse practitioner. DS: Providers Provider Date of admission: 12/15/23 10:12 Primary care physician: Julianne-Staff MD Tita Consults: 12/15/23 03:42 Consult to General Surgeon Routine Consulting Provider: Mick Mcdonough Reason for consultation: Acute Cholecystitis per CT/Abdom pain RUQ Has provider been notified: Yes Discharging clinician: Kimberlee Nguyen DS: Diagnosis Discharge Diagnosis (1) Acute cholecystitis: (2) Dehydration: (3) Lactic acidosis: (4) Hypokalemia: (5) Aortic stenosis due to bicuspid aortic valve: (6) Hypertension: Qualifiers: Hypertension type: primary hypertension Qualified Code(s): I10 - Essential (primary) hypertension (7) Hyperlipidemia: Qualifiers: Hyperlipidemia type: unspecified Qualified Code(s): E78.5 - Hyperlipidemia, unspecified DS: Summary Hospital Course Hospital Course: The patient was admitted with an acute abdomen from acute cholecystitis and associated dehydration and lactic acidosis. He was made n.p.o. and treated with large-volume IV fluids and IVPB Zosyn. General surgery was consulted and the patient was seen by Dr. Mcdonough took the patient to the OR on 12/15/2023 for a robotic assisted lap cholecystectomy and hernia repair. The gallbladder was found to be gangrenous and ruptured during removal. The patient had persistent leukocytosis for the first 24 hours postoperatively and Levaquin was added to his antibiotic regimen. He continued to improve and his pain was mostly resolved other than mild radha-incisional pain. He tolerated a full diet and had a bowel movement prior to discharge. As the patient was doing well he was discharged home in stable condition. A course of antibiotics was continued for 7 more days with Cipro and Flagyl due to concern for intraoperative exposure of the peritoneal cavity to bacterial pathogens. The patient should follow-up with his PCP within 5 to [address] Mcdonough, general surgeon as scheduled per his office staff. We also clinically suspect LLOYD that is undiagnosed and we recommended an outpatient sleep study after discharge. Time Spent with Patient Time attestation: Total time spent providing and/or coordinating discharge services: Time spent: greater than 30 minutes Specific discharge activities: Physical exam, discussion of discharge plan, questions answered. Exam Constitutional Vital Signs, click to edit/add: Last Vital Signs Temp 98.3 F 12/17/23 08:00 Pulse 68 12/17/23 08:00 Resp 18 12/17/23 08:00 BP 150/79 H 12/17/23 08:00 Pulse Ox 94 L 12/17/23 08:00 O2 Del Method Room Air 12/17/23 08:00 O2 Flow Rate 3 12/16/23 04:50 Common normals: no apparent distress, oriented x3 and alert General appearance: cooperative Orientation/consciousness: Yes awake HENMT Common normals: normocephalic and head/scalp atraumatic Eye Common normals: PERRL, EOMs intact bilaterally, conjunctivae normal and no scleral icterus Neck & C-Spine Common normals: no JVD Respiratory Common normals: normal respiratory effort, no use of accessory muscles and clear to auscultation bilaterally Effort & inspection: able to speak in complete sentences and symmetric chest movement Cardio Common normals: no JVD, regular rate, regular rhythm, S1 normal heart sound, S2 normal heart sound and peripheral pulses 2+ throughout Heart sounds: murmur (HSM 3/6) GI Common normals: Normal to inspection, nondistended, normoactive bowel sounds present and soft to palpation Palpation: tender (Mild, radha-incisional tenderness) and rebound tenderness present (minimal) Bladder/kidney exam: bladder normal to palpation Extremity Common normals: normal to inspection, full ROM, normal capillary refill and no pedal edema General: no clubbing and no cyanosis Neuro Common normals: moves all extremities, no focal motor deficits and no sensory deficits noted Speech: speech normal Psych Common normals: mental status grossly normal and activity/motor behavior normal DS: Data Data Completed and Pending Labs on day of discharge: Labs from last 24 hours 12/17/23 04:45 WBC 12.3 H RBC 4.36 L Hgb 13.2 L Hct 40.6 L MCV 93.1 MCH 30.3 MCHC 32.5 RDW 12.9 Plt Count 202 MPV 10.9 Neut % (Auto) 76.3 H Lymph % (Auto) 15.7 L [place] % (Auto) 7.0 Eos % (Auto) 0.6 L Baso % (Auto) 0.2 Neut # (Auto) 9.4 H Lymph # (Auto) 1.9 [place] # (Auto) 0.9 H Eos # (Auto) 0.1 Baso # (Auto) 0.0 Abs Immat Gran (auto) 0.02 Imm/Tot Granulo (auto) 0.2 Sodium 135 L Potassium 3.5 Chloride 100 Carbon Dioxide 28.4 Anion Gap 10.1 BUN 16.0 Creatinine 1.17 Est GFR ( Amer) >60 Est GFR (Non-Af Amer) >60 BUN/Creatinine Ratio 13.7 Glucose 97 Calcium 9.0 Total Bilirubin 0.9 AST 18 ALT 45 Alkaline Phosphatase 67 Total Protein 6.6 Albumin 2.7 L Globulin 3.9 Albumin/Globulin Ratio 0.7 Imaging Chest x-ray: Radiologist's impression: 12/15/23 IMPRESSION: Low volume exam, clear lungs 12/16/23 IMPRESSION: Low volume exam, clear lungs CT scan - abdomen: Radiologist's impression: IMPRESSION: 1. Cholelithiasis with a gallstone in the region of the gallbladder neck with gallbladder distention. These findings are concerning for acute cholecystitis. Consider further evaluation with a right upper quadrant examination. 2. Suspected hemangioma in the left hepatic lobe measuring up to 1.8 cm. 3. Scattered colonic diverticula without evidence of acute inflammation. 4. Normal appendix. US - abdomen: Radiologist's impression: IMPRESSION: 1. Cholelithiasis and abnormally dilated common bile duct, but no appreciable inflammatory changes to suggest acute cholecystitis. Negative sonographic Hayes's sign. 2D Echo: Radiologist's impression: CONCLUSION: 1. Global left ventricular systolic function is hyperdynamic; visually estimated ejection fraction is 65 to 70% 2. Normal right ventricular size and systolic function 3. Biatrial enlargement 4. Mildly increased left ventricular wall thickness 5. Mildly increased right ventricular systolic pressure; RVSP 43 mmHg 6. Mild mitral regurgitation 7. The aortic valve appears bicuspid; mild to moderate aortic valve stenosis 8. Mild aortic valve regurgitation Consider transesophageal echocardiogram in the future for further evaluation of the aortic valve Discharge Plan Discharge Disposition: Home, Self-Care Discharge Medications: New oxycodone-acetaminophen [Percocet] 5-325 mg tablet 1 tab PO Q6H PRN (Reason: pain) Qty: 14 0RF ciprofloxacin HCl 500 mg tablet 500 mg PO BID 7 Days Qty: 14 0RF metronidazole 500 mg tablet 500 mg PO BID 7 Days Qty: 14 0RF Continued atorvastatin 40 mg tablet 40 mg PO DAILY potassium chloride 10 mEq capsule, extended release 20 meq PO DAILY losartan [Cozaar] 100 mg tablet 100 mg PO DAILY aspirin [Enteric Coated Aspirin] 81 mg tablet,delayed release (DR/EC) 81 mg PO DAILY hydrochlorothiazide 25 mg tablet 25 mg PO DAILY Activity: return to work once cleared by your PCP/specialist Diet: advance to your usual diet Print Language: Iranian Patient Instructions: Ciprofloxacin (By mouth), Oxycodone/Acetaminophen (By mouth), Metronidazole (By mouth), Laparoscopic Cholecystectomy (DC) Activity Restrictions/Additional Instructions: - Recommend sleep study for suspected LLOYD Forms: Portal Instructions Follow Up Appointments: December 22 @ 5:30pm with Azeb Hilliard NP [phone] December 29 @ 2:30pm with Dr. Mcdonough [address] [place] [phone] Discharge Date/Time: 12/17/23 11:17
--- NOTE | 2023-12-22 15:41 | CM.DCFOLLOWU ---
Person spoke with: patient How are you feeling? well How is your pain? no pain Did you understand your discharge instructions? yes Do you have any questions about your discharge instructions? no Were you given any prescriptions at discharge? yes Were you able to get your prescriptions filled? yes Do you understand how to take your medications as ordered? yes Do you have any questions about your follow up appointment and do you plan to keep your follow up appointment? no questions, follow ups reviewed Is there anything else that you would like to discuss? no Questions/Comments/Concerns/Other: N/A
== END 2023-12-17 11:17 | disposition home or self-care (01) | DRG 418 ==
LOC: ER 12-15 03:39 → MS 12-15 05:07
PROVIDERS: Nurse Practitioner Acute Care; Surgery; Admitting Provider Family Medicine; Emergency Provider Internal Medicine; Visit Provider Nurse Practitioner
PROC: 0FT44ZZ Resection of Gallbladder, Percutaneous Endoscopic Approach (ICD-10-PCS; principal; 2023-12-15 14:30)
DX: K80.00 Calculus of gallbladder with acute cholecystitis without obstruction (principal); D62 Acute posthemorrhagic anemia; E87.20 Acidosis, unspecified; K42.0 Umbilical hernia with obstruction, without gangrene; Q23.1 Congenital insufficiency of aortic valve; E86.0 Dehydration; K82.A1 Gangrene of gallbladder in cholecystitis; I10 Essential (primary) hypertension; E78.5 Hyperlipidemia, unspecified; E87.6 Hypokalemia; R10.0 Acute abdomen; Z79.82 Long term (current) use of aspirin; Z79.899 Other long term (current) drug therapy; Z82.49 Family history of ischemic heart disease and other diseases of the circulatory system; Z83.3 Family history of diabetes mellitus
CPT/HCPCS: 36415; 71045; 74177; 76705; 80053; 82150; 83605; 83690; 84484; 85007; 85025; 85027; 88302; 88304; 93005; 93306; 94667; 94668; 94761; 96361; 96365; 96366; 96375; 96376; 99285; J1094; J2704; Q9967

== ENCOUNTER 2024-05-23 19:14 | Emergency (ER) | payer BC, SELFPAY ==
[2024-05-23 19:35] VITALS: BP 175/103; PULSE 57; TEMP 36.5; O2SAT 97; BMI 32.0
--- OUTSIDE RECORDS SUMMARY | 2024-05-23 19:39 | XMS_ITS | CCD ---
Author Organization [facility] Inform ion Partnership [facility] Care Team Providers Care Machine Operator Cane Cutter Name Role Phone RAINA ONTIVEROS Admitting Unavailable RAINA ONTIVEROS Attending Unavailable SELF, REFERRED Referring Unavailable ELIUD GREEN Primary Care Unavailable [place] Procedure Practitioner Unavailab RAINA Deshpande Surgeon Unavailable SC Procedure Practitioner Unavailab CORNEL Whyte Surgeon Unavailable Lang Mcdonough Attending Unavailable Lang Mcdonough Admitting Unavailable DO Lang Mcdonough Attending Provider Azeb Hilliard Attending Unavailable Babak Azeb Primary Care Unavailable Gonaicha Azeb Primary Care Unavailable GonAzeb holcomb Attending Unavailable Gonaicha Azeb Primary Care Unavailable Gonaicha Azeb Admitting Unavailable Azeb Hilliard Attending Unavailable Medications Current Medications Medication Drug Class(es) Dates Sig (Normalized) Sig (Original) acetaminophen 325 mg / oxyCODONE hydrochloride 5 mg oral tablet (1 source) Opioid Agonist Start: 02-25-2019 take 1 tablet by mouth every four to six hours Oxycodone-Acetamino phen Active 1 TAB PO EVERY 4-6 HOURS 15 4 February 25, 2019 chlorhexidine gluconate 1.2 mg/ml mouthwash (1 source) Start: 02-25-2019 Chlorhexidine Gluconate (Peridex) 0.12 % mouthwash Active 12 PERCENT MUCOUS MEM Twice daily 600 February 25, 2019 12:00am Use 15 ml and rinse mouth for at least 30 secs ibuprofen 800 mg oral tablet (1 source) Nonsteroidal Anti-inflammatory Drug Start: 02-25-2019 take 800 mg by mouth every six hours Ibuprofen Active 800 MG PO Q6H 20 February 25, 2019 12:00am penicillin v potassium 500 mg oral tablet (1 source) Start: 02-25-2019 take 500 mg by mouth four times daily Penicillin V Potassium Active 500 MG PO Four times daily 20 02February 25, 2019 12:00am Problems Problem Classification Problem Date Documented Da te Episodic/Chronic Open wounds of head; neck; and trunk (2 sources) Scalp laceration; Translations: [Laceration without foreign body of scalp, initial encounter] 07-08-2023 Episodic Other circulatory disease (1 source) Elevated blood pressure; Translations: [Elevated blood-pressure reading, without diagnosis of hypertension] 07-08-2023 Episodic Other injuries and conditions due to external causes (1 source) Injury of head; Translations: [Unspecified injury of head, initial encounter] 07-08-2023 Episodic Skull and face fractures (1 source) Open fracture of mandible; Translations: [Fracture of mandible, unspecified, initial encounter for open fracture] 07-08-2023 Episodic Results Test Name Value Interpretation Reference Range Facility [facility] 12-31-2023 Outside Records [id number]# [address] Lab - Other Lab [facility] - Other Lab Results [id number]# [address] [place] [address] Outside [facility] 12-23-2023 Outside Records [id number]# [address] Outside Records [id number]# [address] [place] [address] Patient Handouton 12-23-2023 Patient Handout Cardiovascular Hypertension, Adult High blood pressure (hypertension) is when the force of blood pumping through the arteries is too strong. The arteries are the blood vessels that carry blood from the heart throughout the body. Hypertension forces the heart to work harder to pump blood and may cause arteries to become narrow or stiff. Untreated or uncontrolled hypertension can lead to a heart attack, heart failure, a stroke, kidney disease, and other problems. A blood pressure reading consists of a higher number over a lower number. Ideally, your blood pressure should be below 120/80. The first ( top ) number is called the systolic pressure. It is a measure of the pressure in your arteries as your heart beats. The second ( bottom ) number is called the diastolic pressure. It is a measure of the pressure in your arteries as the heart relaxes. What are the causes? The exact cause of this condition is not known. There are some conditions that result in high blood pressure. What increases the risk? Certain factors may make you more likely to develop high blood pressure. Some of these risk factors are under your control, including: ? Smoking. ? Not getting enough exercise or physical activity. ? Being overweight. ? Having too much fat, sugar, calories, or salt (sodium) in your diet. ? Drinking too much alcohol. Other risk factors include: ? Having a personal history of heart disease, diabetes, high cholesterol, or kidney disease. ? Stress. ? Having a family history of high blood pressure and high cholesterol. ? Having obstructive sleep apnea. ? Age. The risk increases with age. What are the signs or symptoms? High blood pressure may not cause symptoms. Very high blood pressure (hypertensive crisis) may cause: ? Headache. ? Fast or irregular heartbeats (palpitations). ? Shortness of breath. ? Nosebleed. ? Nausea and vomiting. ? Vision changes. ? Severe chest pain, dizziness, and seizures. How is this diagnosed? This condition is diagnosed by measuring your blood pressure while you are seated, with your arm resting on a flat surface, your legs uncrossed, and your feet flat on the floor. The cuff of the blood pressure monitor will be placed directly against the skin of your upper arm at the level of your heart. Blood pressure should be measured at least twice using the same arm. Certain conditions can cause a difference in blood pressure between your right and left arms. If you have a high blood pressure reading during one visit or you have normal blood pressure with other risk factors, you may be asked to: ? Return on a different day to have your blood pressure checked again. ? Monitor your blood pressure at home for 1 week or longer. If you are diagnosed with hypertension, you may have other blood or imaging tests to help your health care provider understand your overall risk for other conditions. How is this treated? This condition is treated by making healthy lifestyle changes, such as eating healthy foods, exercising more, and reducing your alcohol intake. You may be referred for counseling on a healthy diet and physical activity. Your health care provider may prescribe medicine if lifestyle changes are not enough to get your blood pressure under control and if: ? Your systolic blood pressure is above 130. ? Your diastolic blood pressure is above 80. Your personal target blood pressure may vary depending on your medical conditions, your age, and other factors. Follow these instructions at home: Eating and drinking ? Eat a diet that is high in fiber and potassium, and low in sodium, added sugar, and fat. An example of this eating plan is called the DASH diet. DASH stands for Dietary Approaches to Stop Hypertension. To eat this way: ? Eat plenty of fresh fruits and vegetables. Try to fill one half of your plate at each meal with fruits and vegetables. ? Eat whole grains, such as whole-wheat pasta, brown rice, or whole-grain bread. Fill about one fourth of your plate with whole grains. ? Eat or drink low-fat dairy products, such as skim milk or low-fat yogurt. ? Avoid fatty cuts of meat, processed or cured meats, and poultry with skin. Fill about one fourth of your plate with lean proteins, such as fish, chicken without skin, beans, eggs, or tofu. ? Avoid pre-made and processed foods. These tend to be higher in sodium, added sugar, and fat. ? Reduce your daily sodium intake. Many people with hypertension should eat less than 1,500 mg of sodium a day. ? Do not drink alcohol if: ? Your health care provider tells you not to drink. ? You are , may be , or are planning to become . ? If you drink alcohol: ? Limit how much you have to: ? 0?1 drink a day for women. ? 0?2 drinks a day for men. ? Know how much alcohol is in your drink. In the [place] one drink equals one 12 oz bottle of beer (355 mL), one 5 oz glass of wine (148 mL), or one 1? oz glass (more content not included)... [facility] 12-15-2023 L Specimen: [id number] Received: 12/16/23 Status: MARIBELL Restrepo Num: [id number] Spec Type: Surgical Subm Dr: Lang Mcdonough,DO Tissues: A Gallbladder (GALLBLADDER) B Hernia Sac (HERNIA SAC WITH CONTENTS) Procedures: HE/2, Gross/Micro L3, Gross/Micro L2 Age/ Patient Sex Location Account Attending Physician Lang Hubbard 58/M LABELL [id number] Lang Mcdonough DO SPEC NUM: [id number] RECD: 12/16/23 STATUS: MARIBELL RESTREPO NUM: [id number] ANNALISE: 12/15/[address] [facility] [address]: Lang Mcdonough DO ENTERED: 12/16/23 [facility] DR: Cesario,Lab SPEC TYPE: Surgical DEPT: AMY MELTON ORDERED: HE/2, Gross/Micro L3, Gross/Micro L2 ORDERED: HE/2, Gross/Micro L3, Gross/Micro L2 Pathological Diagnosis A. Gallbladder, cholecystectomy: Hemorrhagic cholecystitis and cholelithiasis. B. Hernia sac, umbilical, resection: Features consistent with hernia sac and contents. Clinical Information Abdominal pain, incarcerated umbilical hernia. Gross Description A. Received in formalin, labeled with the patient's name, date of and gallbladder is a previously disrupted gallbladder measuring 9.1 cm in length by 3.4 cm in average diameter. The serosal surface is sotelo-purple and dusky. The adjacent hepatic surface is sotelo and roughened. The clamped cystic duct measures 0.2 cm in diameter. No cystic duct lymph node is present. Opening into the specimen reveals roughened, hemorrhagic mucosa containing multiple brown bosselated stones within the central lumen and obstructing the cystic duct, ranging from 0.5 to 0.7 cm. No discrete masses or polyps are present in the gallbladder wall measures 0.1 cm in thickness. Holistic Pulser sections are submitted in A1. B. Received in formalin, labeled with the patient's name, date of and hernia sac and contents is a 5.1 x 3.4 x 1.5 cm portion of soft adipose tissue. Cut sections demonstrate unremarkable, lobulated and homogenous surfaces. Holistic Pulser sections are submitted in B1. -------- Specimen: [id number] Received: 12/16/23 Status: MARIBELL Restrepo Num: [id number] Spec Type: Surgical Subm Dr: Lang Mcdonough DO Tissues: A Gallbladder (GALLBLADDER) B Hernia Sac (HERNIA SAC WITH CONTENTS) Procedures: HE/2, Gross/Micro L3, Gross/Micro L2 -------- Patient: Lang Hubbard [id number] (Continued) -------- Specimen: [id number] Received: 12/16/23 (Continued) Signed (signature on file) Naz Johnson MD 12/17/23 1625 -------- Specimen: [id number] Received: 12/16/23 Status: MARIBELL Restrepo Num: [id number] Spec Type: Surgical Subm Dr: Lang Mcdonough DO Tissues: A Gallbladder (GALLBLADDER) B Hernia Sac (HERNIA SAC WITH CONTENTS) Procedures: HE/2, Gross/Micro L3, Gross/Micro L2 -------- Patient: Lang Hubbard [id number] (Continued) -------- Specimen: [id number] Received: 12/16/23 (Continued) CPT Codes 74909 [id number] -------- -------- Specimen: [id number] Received: 12/16/23 Status: MARIBELL Restrepo Num: [id number] Spec Type: Surgical Subm Dr: Lang Mcdonough DO Tissues: A Gallbladder (GALLBLADDER) B Hernia Sac (HERNIA SAC WITH CONTENTS) Procedures: HE/2, Gross/Micro L3, Gross/Micro L2 -------- Patient: Lang Hubbard Marissa [id number] (Continued) -------- Signed (signature on file) Naz Johnson MD 12/17/23 1625 [place] [facility] Reminder Messageson 08-26-19 Reminder Messages - From: Azeb Hilliard APRN, TONG To: [facility] ([email or web address]); Sent: 08/24/2023 09:42:15 EST ! Show up: 08/24/2023 09:42:15 EST Subject: Results Follow Up Actions: Call the patient with result(s) Due Date/Time: 08/25/2023 09:42:00 EST Reminder Comments: ok Results: Date Result Name Ind Value Ref Range 08/21/2023 8:27 Sodium Level 136.0 mmol/L (136.0 - 144.0) 08/21/2023 8:27 Potassium Level 4.1 mmol/L (3.6 - 5.1) 08/21/2023 8:27 Chloride Level 104 mmol/L (101 - 111) 08/21/2023 8:27 CO2 23 mmol/L (21 - 32) 08/21/2023 8:27 Anion Gap 13.1 mmol/L (5.0 - 19.0) 08/21/2023 8:27 Glucose Level 113.0 mg/dL (74.0 - 118.0) 08/21/2023 8:27 BUN 19 mg/dL (8 - 26) 08/21/2023 8:27 Creatinine Level 1.07 mg/dL (0.90 - 1.30) 08/21/2023 8:27 BUN/Creat Ratio ((H)) 17.7 (4.6 - 16.2) 08/21/2023 8:27 eGFR AA >60 mL/min/1.73m2 08/21/2023 8:27 eGFR Non AA >60 mL/min/1.73m2 08/21/2023 8:27 Calcium Level 9.3 mg/dL (8.9 - 10.3) 08/21/2023 8:27 Bili Total 0.6 mg/dL (0.3 - 1.2) 08/21/2023 8:27 Alk Phos 68 IU/L (32 - 91) 08/21/2023 8:27 AST/SGOT 30 IU/L (15 - 41) 08/21/2023 8:27 ALT/SGPT 44.0 IU/L (17.0 - 63.0) 08/21/2023 8:27 Protein Total 6.9 gm/dL (6.5 - 8.1) 08/21/2023 8:27 Albumin Level 4.2 gm/dL (3.5 - 5.0) 08/21/2023 8:27 Globulin 2.7 gm/dL (1.5 - 4.3) 08/21/2023 8:27 A/G Ratio 1.5 (1.4 - 2.6) 08/21/2023 8:27 Osmolality 275 mOsm/L 08/21/2023 8:27 Cholesterol 161.0 mg/dL (66.0 - 200.0) 08/21/2023 8:27 HDL ((L)) 37 mg/dL (40 - 71) 08/21/2023 8:27 Chol/HDL Ratio 4.3 (0.0 - 4.5) 08/21/2023 8:27 LDL 88 mg/dL (1 - 100) 08/21/2023 8:27 Trig ((H)) 180.0 mg/dL (0.0 - 150.0) 08/21/2023 8:27 VLDL. 36 mg/dL (5 - 40) 08/21/2023 8:27 PSA Screen 1.28 ng/mL (0.00 - 4.00) Attempted to call patient. Unable to LVM Attempted to call patient. Unable to LVM Attempted to call patient. Unable to LVM [facility] Coding Summaryon 08-25-2023 Coding Summary HTMLBase 64 TthvmwneKCp3xQd+PGhlY WQ+LX6EGPNrV50rxVIzoR 1xA1BUMZeOKsbzTGPWCBr WKxZpgdNiIX5shPYoJYFp IC8+GI2dGOZpZopneDCdi 8V1bCF2I93tir3wMSngqL S0RGUzBtCffnshl7dvlUi 6IDcuNmluOyBt VTQprD50YVE6oK91Mb00c ISagLYyz2zheNl4DxOiHG FrLRA0eHqtCXzdv3YdROU jQ17tiNKog8H8 RPCgqCdhcMQoHmPqjQY7i S0nFSqkglytk3ahiikwOg g6oq95mPSoe0S7lLX9I0Y vvaP0EQCijUIs ZhsjhYZWdT1xokffz9qdj wjeRnRmNFGqSLq0PDy9GO YukHsgGjVcWK74WXD8YQB qpmRaI4SxCSHs tEsmWjL0v9X5Vf8WH6AWF pxxE6JHPXPXKSwhbRC+PC 10ia98M3DlKkwmUkv2XXT nGYE0pJV1xP5r HETtFWkaa3B1gWX7B4Chc tPxzr2sg2gtVFMeKHuwI1 4czOCac2K6EUNwqWG2DBX dqDkkFjNizK01 Oyc+KGDitVweo1OfOzhez 2tsy9xpyVd7MxdpQYHuji NomOqxNGK7i0QuSc7xYQD daMG8qYF1cP0n VvYeEtK2MMpuD578DzKyy CZyIwiyF97mT5KivNJ+PH IeXac4ZYIpdBroKB0uF4I hZGRpbmctbGVm nKzpSQ4tKKXtnyusDWDop L2iWCXsD8u7KfGyHvZ0ZA dqU6LbTHApbjzbPf80hN8 lLpYlEiF7BZeo K3AkxuX0EARgaFRtNArxV KA9X11go8L2BZBpBSDkDL F6qIX4yB0rpWxhcxdshLK mdDsgdmVydGlj NMmjTAowL770HLOpxIhbA kNvZGluZyBEYXRlOiAgMD EvMzAvMjAyNDwvdGQ+PHR zGPS5yWkfTUSi eUEdNHltMg3jlFkggTtrP O3uZOKwhgwtIOForI8lNN GeaEBxnDflXC9nAPEdoir ix060OkKbTYQ4 GSQyvHSrT0KqeD7qNfTpI UMeCPCxL8SomEXiBUwdO6 75SJieFqI0FZFmivHmM4J sLWFsaWduOiB0 g5G3Tc0Et6VtagyvT7Udc RWwSxPcDmshRVx6Z4MsZr wvdHI+TQ47DMHyPC41TWt 8SXW0qNzmIRar WIVqN4DzbS6tQrVfXXEoD GRkOyc+PHRhYmxlIHdpZH RoPScxMDAlJyBzdHlsZT0 xMa8gNPIkGJAn cFgoiCSeRpZic6haOQNtI NkmJN9dbNoiB0AhfQJ8JY Cak7j1Wp99J75iO5VyjAA +UQIweRO8wSQ2 xV3bRjVsMvD0JPlfA303C kMbbYPvSxnzh5dgz1uhlB c9OsS9XEHmnmXzkYlaHQP 8t7RmFa68F97h IHdpZHRoPSIxNSUiIHZhb Btaiz0prB0oRo0+PGNvbC I0jFX1yR4iMuTeOzT7MCn mH484EwBgrPSl Glesp8dnx7iapAx7QkJfQ FXjphPmvVzxKLC6j9QsGr 81K9AzsTwvl2PvAue4pd2 6dBWyh9I2rMM3 S0UwFTIczfjbeTNsyOwoP O2wNPHqemapGTSsgD9aOU IpL4f5BaVuNhB9UGyvN1Y gixZ8DUBbzSVm WFBpyERUuL3vyutln1ape fyzUmRiQWQjQVj7NKh8VG IqeAyvVcVyHMG8KyZ6HTG 4vYPbgI1itOvd cxpmlL3aYxi+QJJ4zAXty LJAAU9lMprgkRD+PHRkIH Q4kVboFKeyMLSubN3tQIA hA3k0DdDkAfV8 LUayY9OgslH2LBLleJHtO KYdkDFLoO4pknvfm8yzpt ghSlCsZNBjEYg7XQd0MFG saWduOiBsZWZ0 EgO5THP1iCSxyA3bmDwoe engmW3qTzz+QmlydGggRG F9ZIo1Q4BuQqp0LZEedJp xQU4dcOPfSHvr Qa9ghWinpJfjNV8dZPDui dimo739JsLfv7prCSNqpI LgYMbaOIQ7P68or6D2RTY rDKBkGMS6yGB1 gB4tvVrnedjrgHUxpBljn sSndVpkNAapNBrrU762TQ XtwRfzYeFuAGv4Z4KkBwd 6ZJOgzRppUB9h mHMiAKshXu5kjKqlkPqvK V8zMXEyguxjk585BiBur9 glUDQovWByAXvvSNQ9B24 yg7O9FSIuOSFm GAS1yXG2kA8tnUaldcqyo GVmdDsgdmVydGljYWwtYW ntZ621VQSztJtyLfObdTc 2F8KdWmg5AGDr oLuxMJ4ikYSuYTdjDw4fr KxywYhmMF9mXNUrqhzed6 86DrPib3ajTZDmdOIsTGp iDPJ9Z58nk4M7 MKVpEENbLGN8hVT4yQ4yp GlnbjogbGVmdDsgdmVydG usIVeoQLzsT831ZJNexWz nPlBhdGllbnQg GGydGAm2R9JjJruktWJ+P T93JQWrTG73bMWmcMLvn6 omtSv5MhBqWASrCDZ8xUj pVOacs1BrGZCc M01bdJYfq5I9DTPxxGdts ORiZuUqlMS8aT8vFDqnuq lzd2skglpjVitzt2rcwc6 5mX81G33mNOka ZHRoPSIzMCUiIHZhbGlnb o3raR0iSi3+ZNFkqSJ9zF B5vA3iNCPhMaL4UCkjX74 9InRvcCIvPjxj m5yja5qzpSj6ZxF7LNHfr sKaxHioADG3f3AnCy86N0 9sIHdpZHRoPSIyMCUiIHZ ppKivjm4ohT0m Ii8+UFPasFN6qMM4jP3yP gJuXqP1LWjdS802HuCbcM YmEoajM22cM2ZneVZ+PHR rThd1XAIttBfx DI1lyGNgOFlbNp6tVEB4A rYsPrQxNAikW2EySZNrej fueuzitAT7GLThTZJhxO2 4Rd9brVoySDYh hJSCgX5mwfmcr3qmfmdbE hTnYPOkXKs8MSk8IHTaiO xlSwZzJSL8IuR8RNL4kTS ziD3khUpiubgd hJ6fC2HiZYXrmfwbQp12a B4kPlOhZaO7QQfgHop+SE FMTElFUiwgTUlDSEFFTCB EQVZJRDwvdGQ+ BQTjOAU2fAymMVfgXUUsf U8jAYBoS6u1WcAbLdE0VE gqT0HzYSZjhupnYh27aI1 pTuQxOfV1HQsk K3YenxA8FWGzyXCoLDyzZ HB4S61er6M0EJIeRHTzEP H0hVU8fG4ebPwqoazicHL mdDsgdmVydGlj ORihOYheM795SXPueCyhW tG2ObK7LxT4IqR6P5CtQz o4AEOxnCwcCJ5tbHBpNKg iPx6opCheiUib FY3pXZAgyoewPZVrcJ1kE UAcmEPbrWzkCA1dMYEwjm hnq220LwOzEQW1NTZxdRJ mD0DgzR9qLsZz ZFVdLOQpM8WtqCRzWAdpQ 382ALwsAxH3JZVggiIjA2 RtFTUluAmrWuI9q5T7Mu5 1OCBZZWFyczwv dGQ+XAAbCKT0jMkvVOdyH HPkuX5mOEItR9c7SeCvIy G1LXpwH2XxYBQfctveHz8 5iT1uObLaLtJ6 KZbrP8CgjzR2FUEtuYGdR CriEMU3R95ar5B7TDReZT MhYVW8tFN4lF0yyCxqhmy gbGVmdDsgdmVy eBprXAqpKGrwC851DINqg UsnZn1EXPE5E1TxDir3GD KmmWszAX6qqJHaUFbzFq3 aiWmlhUuxPJ9t VOSqfpepWJAkqZ5fJXFrp VIqjOavSI8aZSVxlfprm5 69TcVwQXC3NLEzkXZuV5W wyA4bXuYoYDLk WHAbD8XlpOMlHNqaD926Q YmcMeN7TYSujvDyP0EgRK SgkMkfOsD0z4U3Za5QWUu vdGQ+OG39wi74 I4NkVlykKyn4RKBcKSN4s NP1lN9kHSIwLZumd2D4oI A6V6IezyGfvp4xq2xmFGL iYMckG77tfDVb v6W5YZJpdLE0WZDjaTjrH sEgpY91Cdh+PGNvbGdyb3 ExLpcuc7loh1fveWn0CkI wJSIgdmFsaWdu BLI5c0FtQr99W02eKEewR HRoPSIzMCUiIHZhbGlnbj 7qmS7sNo1+ZTIruAZ1nWM 0uR3jPdZbMdI7 JQaaA457UgCuvGPsNkkxz 8scy8nybOk5ByDoBSOojg OriMikPUB9i0ViJz47J1A bgRdek9TwHzd4 xr39vDMbz4E8jIM5Q1GjH DSlnbrcyQTyvHclRY5xQA XwmuepUYEhjZ1hYWNrI6v 6WpRwTgR3RTpi Q0CqqyW5YYKdvLUbUBOqb UOEkD9gnkdaf8lxwwsoEk GdZAMhBJk0BFq1QMUrvVn yUcMgMLI1IfE3 HCZ8uVRvhU8zqZfppmkxw G9wOyc+MJy0q6oucPIxGI 7hxGA0UD58YE51aVRqn7B 9eHN7V0LdQSVa wkrodlwycDX5EOOcXBUyr K70Qk2glBoxDz6qTHRuWI M5GZVxqAWrV8GriX6kWmI cONFlGBLeW3Zo dHAnPLyaO512WYmzUtT2M HDpdiOeN7HwDXNnfLxjOk J5y6I2Dl2YRX51JQ76XT4 4fRHlu8M7wCM7 X2BkUSEfwdyjneqjnKG8A MLeMXBzxN68Bi9flGytQm 3xNAGdHEZ8VMBybQGlT3R vcI6fQgLwKZGp RUUtO0WmcXPdWOglX718R PzdKcY6MLPlejJoG7UgUV HirZxsBcH8i1G5Nw6DXq7 4KR29OF90hLJp c7O5uOD0E4DzTOQnajefp pnixTW3UHNsTNYnyA30Rz 7wuGpwJd6gYCTeUGV3RJT yqLIaG0VlbE5t OqXnXAEqFCJmG1TtwDAtY GkhH421QGgyOmX1YOTdre LwA9HuYKJpkOntYoE2l7O 9Lw4HBWxcech0 N6SvTsphbUZ+KY20MKBlS A31bXJpcJYmg3juaZc6Xo UwKLXuMVL5aYmmHBezc6L sNBIoX48trGRa c2U (more content not included)... Normal [facility] Standardon 08-21-2023 eGFR Non AA >60 Invalid Interpretation Code [facility] Comment on above: Performed By: #### 1 [id number] #### [facility] (DEFAULT) [address] [place] [address] 63494 eGFR AA >60 Invalid Interpretation Code [facility] Comment on above: Performed By: #### 1 [id number] #### [facility] (DEFAULT) [address] [place] [address] 36791 Albumin [Mass/Vol] 4.2 g/dL Normal 3.5-5.0 [facility] Comment on above: Performed By: #### 1 [id number] #### [facility] (DEFAULT) [address] [place] [address] 34235 Albumin/Globulin [Mass ratio] 1.5 {ratio} Normal 1.4-2.6 [facility] Comment on above: Performed By: #### 1 [id number] #### [facility] (DEFAULT) [address] [place] [address] 53703 Alk Phos 68 IU/L Normal 32-91 [facility] Comment on above: Performed By: #### 1 [id number] #### [facility] (DEFAULT) [address] [place] [address] 15548 ALT [Catalytic activity/Vol] 44.0 U/L Normal 17.0-63.0 [facility] Comment on above: Performed By: #### 1 [id number], [id number] #### [facility] (DEFAULT) [address] [place] [address] 35201 Anion gap [Moles/Vol] 13.1 mmol/L Normal 5.0-19.0 [facility] Comment on above: Performed By: #### 1 [id number] #### [facility] (DEFAULT) [address] [place] [address] 41408 AST [Catalytic activity/Vol] 30 U/L Normal 15-41 [facility] Comment on above: Performed By: #### 1 [id number], [id number] #### [facility] (DEFAULT) [address] [place] [address] 78623 Bili Total 0.6 mg/dL Normal 0.3-1.2 [facility] Comment on above: Performed By: #### 1 [id number], [id number] #### [facility] (DEFAULT) [address] [place] [address] 76469 Calcium [Mass/Vol] 9.3 mg/dL Normal 8.9-10.3 [facility] Comment on above: Performed By: #### 1 [id number], [id number], [id number] #### [facility] (DEFAULT) [address] [place] [address] 95367 Chloride [Moles/Vol] 104 mmol/L Normal 101-111 [facility] Comment on above: Performed By: #### 1 [id number], [id number] #### [facility] (DEFAULT) [address] [place] [address] 81345 CO2 [Moles/Vol] 23 mmol/L Normal 21-32 [facility] Comment on above: Performed By: #### 1 [id number], [id number] #### [facility] (DEFAULT) [address] [place] [address] 96219 Creatinine [Mass/Vol] 1.07 mg/dL Normal 0.90-1.30 [facility] Comment on above: Performed By: #### 1 [id number], [id number] #### [facility] (DEFAULT) [address] [place] [address] 71012 Globulin (S) [Mass/Vol] 2.7 g/dL Normal 1.5-4.3 [facility] Comment on above: Performed By: #### 1 [id number], [id number], [id number] #### [facility] (DEFAULT) [address] [place] [address] 09081 Glucose [Mass/Vol] 113.0 mg/dL Normal 74.0-118.0 [facility] Comment on above: Performed By: #### 1 [id number], [id number], [id number] #### [facility] (DEFAULT) [address] [place] [address] 56750 Osmolality 275 mOsm/L Invalid Interpretation Code [facility] Comment on above: Performed By: #### 1 [id number], [id number] #### [facility] (DEFAULT) [address] [place] [address] 87380 Potassium [Moles/Vol] 4.1 mmol/L Normal 3.6-5.1 [facility] Comment on above: Performed By: #### 1 [id number], [id number], [id number] #### [facility] (DEFAULT) [address] [place] [address] 96059 Protein [Mass/Vol] 6.9 g/dL Normal 6.5-8.1 [facility] Comment on above: Performed By: #### 1 [id number], [id number], [id number] #### [facility] (DEFAULT) [address] [place] [address] 97853 Sodium [Moles/Vol] 136.0 mmol/L Normal 136.0-144.0 [facility] Comment on above: Performed By: #### 1 [id number], [id number], [id number] #### [facility] (DEFAULT) [address] [place] [address] 52384 Urea nitrogen [Mass/Vol] 19 mg/dL Normal 8-26 [facility] Comment on above: Performed By: #### 1 [id number], [id number] #### [facility] (DEFAULT) [address] [place] [address] 14155 Urea nitrogen/Creatini ne [Mass ratio] 17.7 mg/mg High 4.6-16.2 [facility] Comment on above: Performed By: #### 1 [id number], [id number], [id number] #### [facility] (DEFAULT) [address] [place] [address] 26120 Lipid Panel Standardon 08-21 Cholesterol [Mass/Vol] 161.0 mg/dL Normal 66.0-200.0 [facility] Comment on above: Performed By: #### 1 [id number], [id number], [id number] #### [facility] (DEFAULT) [address] [place] [address] 22781 Cholesterol in HDL [Mass/Vol] 37 mg/dL Low 40-71 [facility] Comment on above: Performed By: #### 1 [id number], [id number] #### [facility] (DEFAULT) [address] [place] [id number] Cholesterol in LDL [Mass/Vol] 88 mg/dL Normal 1-100 [facility] Comment on above: Performed By: #### 1 [id number] #### [facility] (DEFAULT) [address] [place] [address] [id number] Cholesterol.total /Cholesterol in HDL [Mass ratio] 4.3 {ratio} Normal 0.0-4.5 [facility] Comment on above: Performed By: #### 1 [id number], [id number] #### [facility] (DEFAULT) [address] [place] [address] 09280 Triglyceride [Mass/Vol] 180.0 mg/dL High 0.0-150.0 [facility] Comment on above: Performed By: #### 1 [id number] #### [facility] (DEFAULT) [address] [place] [address] 67235 VLDL. 36 mg/dL Normal 5-40 [facility] Comment on above: Performed By: #### 1 [id number], [id number], [id number] #### [facility] (DEFAULT) [address] [place] [address] PSA Screenon 08-21-2023 PSA Screen 1.28 ng/mL Normal 0.00-4.00 [facility] Comment on above: Result Comment: [employer] DxI Synchron Access Clinical System (Chemiluminescence) Values obtained with different assay methods or kits cannot be used interchangeably. Results cannot be interpreted as absolute evidence of the presence or absence of malignant disease. Performed By: #### 1 [id number], [id number], [id number] #### [facility] (DEFAULT) [address] [place] [address] Patient Handouton 06-03-2023 Patient Handout Gastroenterology Hypokalemia Hypokalemia means that the amount of potassium in the blood is lower than normal. Potassium is a mineral (electrolyte) that helps regulate the amount of fluid in the body. It also stimulates muscle tightening (contraction) and helps nerves work properly. Normally, most of the body's potassium is inside cells, and only a very small amount is in the blood. Because the amount in the blood is so small, minor changes to potassium levels in the blood can be life-threatening. What are the causes? This condition may be caused by: ? Antibiotic medicine. ? Diarrhea or vomiting. Taking too much of a medicine that helps you have a bowel movement (laxative) can cause diarrhea and lead to hypokalemia. ? Chronic kidney disease (CKD). ? Medicines that help the body get rid of excess fluid (diuretics). ? Eating disorders, such as anorexia or bulimia. ? Low magnesium levels in the body. ? Sweating a lot. What are the signs or symptoms? Symptoms of this condition include: ? Weakness. ? Constipation. ? Fatigue. ? Muscle cramps. ? Mental confusion. ? Skipped heartbeats or irregular heartbeat (palpitations). ? Tingling or numbness. How is this diagnosed? This condition is diagnosed with a blood test. How is this treated? This condition may be treated by: ? Taking potassium supplements. ? Adjusting the medicines that you take. ? Eating more foods that contain a lot of potassium. If your potassium level is very low, you may need to get potassium through an IV and be monitored in the hospital. Follow these instructions at home: Eating and drinking ? Eat a healthy diet. A healthy diet includes fresh fruits and vegetables, whole grains, healthy fats, and lean proteins. ? If told, eat more foods that contain a lot of potassium. These include: ? Nuts, such as peanuts and pistachios. ? Seeds, such as sunflower seeds and pumpkin seeds. ? Peas, lentils, and isabel beans. ? Whole grain and bran cereals and breads. ? Fresh fruits and vegetables, such as apricots, avocado, bananas, cantaloupe, kiwi, oranges, tomatoes, asparagus, and potatoes. ? Juices, such as orange, tomato, and prune. ? Lean meats, including fish. ? Milk and milk products, such as yogurt. General instructions ? Take zviu-sch-pdewlrj and prescription medicines only as told by your health care provider. This includes vitamins, natural food products, and supplements. ? Keep all follow-up visits. This is important. Contact a health care provider if: ? You have weakness that gets worse. ? You feel your heart pounding or racing. ? You vomit. ? You have diarrhea. ? You have diabetes and you have trouble keeping your blood sugar in your target range. Get help right away if: ? You have chest pain. ? You have shortness of breath. ? You have vomiting or diarrhea that lasts for more than 2 days. ? You faint. These symptoms may be an emergency. Get help right away. Call 911. ? Do not wait to see if the symptoms will go away. ? Do not drive yourself to the hospital. Summary ? Hypokalemia means that the amount of potassium in the blood is lower than normal. ? This condition is diagnosed with a blood test. ? Hypokalemia may be treated by taking potassium supplements, adjusting the medicines that you take, or eating more foods that are high in potassium. ? If your potassium level is very low, you may need to get potassium through an IV and be monitored in the hospital. This information is not intended to replace advice given to you by your health care provider. Make sure you discuss any questions you have with your health care provider. Document Revised: 03/27/2022 Document Reviewed: 03/27/2022 [employer] Patient Education ? 2022 [employer] Normal [facility] Operative Reporton 9 Operative Report MR#: [id number] [facility] Pt. Name: Lang Hubbard Room #: D5 Discharge Date: Birthdate: 1965 OPERATIVE REPORT DATE OF SURGERY: 03/01/2019 SURGEON: Raina Ontiveros MD PREOPERATIVE DIAGNOSES: Symphyseal fracture mandible and right ramus mandibular fracture, status post work accident. POSTOPERATIVE DIAGNOSES: Symphyseal fracture and right ramus mandibular fracture, status post work accident. PROCEDURES PERFORMED: 1. ORIF of the symphyseal fracture mandible 2. Closed reduction, right ramus fracture with interdental MMF fixation. PUPPET MASTER: YUSEF Corral. INDICATIONS: This patient is a pleasant 53-year-old man, who had sustained injury at work, when some sort of large pipe hit him to his face. Realizing injury, he was taken to [facility], where on the initial CT scan, he was identified to have open fracture of the mandible. He was told about it, placed on antibiotics, pain medication, and was referred to [facility]. The patient, however, was not able to reach anyone at [facility] and was not given an appointment to follow up. The patient returned to his primary care physician, who referred the patient to [facility]. The patient was seen initially in the outpatient clinic, where he presented with difficulty of mouth opening and hematoma of the floor of the mouth and reported significant pain at the symphyseal area and overall in the jaw. The patient was evaluated and indeed has signs of fracture and some disruption of the occlusal plane in the symphyseal area injury to the alveolar gum and excessive pain consistent with fracture. The patient, however, did not have a CT images with him. Considering the presence of the fracture, timing since the time of fracture and need for the surgical procedure, the patient was recommended to return with the CT images from the [facility] and scheduling was performed for the surgical procedure. On evaluation of the CT scans, the patient had a symphyseal fracture and minimally displaced right ramus fracture. This will require stabilization for the proper healing and issues of the surgery, technical aspects of the surgery, and associated risks extensively discussed with the patient. The risks of bleeding, infection, need for additional procedures, poor healing, and change in sensation quoted to the patient. The patient appears to be well informed and wants to proceed with the surgery. PROCEDURE IN DETAIL: The patient was taken to the operating room, positioned supine on the table. Nasal endotracheal intubation was performed. At this point, the head and neck, prepped and draped in the usual sterile fashion. An intraoral prep was performed using peroxide and saline cleaning. A throat pack was positioned and on evaluation, the patient indeed has consistent findings previously seen with floor of the mouth, some instability and line of fracture palpable along the symphyseal area in the matter of fact, just between the medial and lateral incisors of the left mandible. Local anesthesia was introduced at this point with lidocaine 1% with epi mixed with Marcaine 0.25% at 1:1 mixture, total of 4 mL. A time-out was called. On the time-out, the patient, surgery, and site of the surgery were properly identified. No concerns were expressed by the surgical team. With retraction of the lip, vestibular incision carried with leaving approximately 5 mm calf of tissue over the alveolar dental portion of the mandible. The incision was widened anteriorly to accommodate for the mentalis muscle. An incision was carried down to the bone and bone was freed with the [place] and the site of the fracture readily identified. This was located in the near vertical direction just between medial and lateral incisor and extending into the inferior border, where some widening of the bone appreciated. At this point, upon evaluation, good apposition of the edges can be achieved with some compression, and the decision was made considering apposition of the fracture that the lag screws would be appropriate for the treatment. The small bur holes were made on either side of the fracture and a correctional clamp by [employer] positioned to secure the fracture segments in adjust position. At this point, a 5 mm incision was carried on the skin laterally to the right side and with advancement of the [employer] hardware, the bone is easily accessible. The decision was made to proceed with the lag screws placement across the fracture line, starting on the right side, 2.4 mm drilling proceeded to have distance to approximately the level of the fracture site and 1.8 mm drilling proceeded further with again mandible secured with clamps and good normal penetration of the bone achieved. The 1.8 mm Synthes screw was positioned across the fracture site, providing good compression and position of the tissue. At this point, using the same cutaneous approach, the second drill approximately 7 mm above the first one was positioned and drilling performed through 2.4 mm proximal segment of the drilling and distant portion drilled with 1.8 mm drill bit. As soon as drilling performed with no noticeable difficulty; however, the depth gauge had difficult to advance. At this point, it was noted that the drill bit of 1.8 mm bit was fractured. A small segment of the drill bit was left in the wound. This necessitated removal of the previously placed lag screw, displacement of the edges, and finding and removal of the fractured drill bit. Copious irrigation of the wound was performed and after placement of the reduction forceps, and once again reduction was performed and first lag screw was positioned again. The attention was turned to the second screw and utilizing already pre-existing drill hole, this was slightly elongated with additional 1.8 mm drilling and 32 mm long screw, 1.8 mm in diameter was positioned. This was slightly less than previous that was 42 mm in length. Good position and stability of the bone achieved. At this point, copious irrigation of the wound was performed and following additional cleansing with Betadine, closure of the wound was performed, using a running Vicryl 3-0 sutures, closing from the left to the right. Good closure was achieved. A single additional closure required on the cutaneous opening that was used with 5-0 nylon. At this point, the evaluation of the stability of the ramus was performed, manipulation and similarly stabilization of the bone achieved, at this point, decision was made to proceed with MMF closure. An 8 mm MMF screws were positioned inferiorly lateral to the canine and superior level lateral to canine. The throat pack was removed. The mandible positioned in the normal occlusal plane and with class one position the reduction, the 0.24 thousands of an inch wire was selected. This was positioned through the openings of the MMF screws in [id number] fashion and tightening and closure of the mandible was performed on the inferior lateral margin. The patient tolerated the procedure well. At this point, copious irrigation and cleaning of the throat was performed. The patient was awakened, extubated on the table, in good and stable condition returned to the recovery room. Electronically Signed by: Raina Ontiveros MD 03/14/2019 10:49 A Raina Ontiveros MD Date Dict: 03/01/2019/04:37 P/Raina Ontiveros MD Date Trans: 03/02/2019 03:06 Jaye/adam [id number] cc: Patel Bolden [address] [place] [address] [place] [facility] POC GLUCOSE LABon 03-01-2019 Glucose [Mass/Vol] 106 mg/dL High 70-100 [facility] Comment on above: Performed By: #### 8 [id number] #### [place] [address] [place], [place] [id number] [place] [address] Encounters Encounter Date Encounter Type Care Provider Facility Start: 12-23-2023 End: 12-23-2023 ambulatory [facility] Facility: [facility] Start: 12-15-2023 End: 12-15-2023 ambulatory Lang Mcdonough Facility:[facility] Start: 12-15-2023 End: 12-15-2023 ambulatory DO Lang Mcdonough Work Phone: [facility] Work Phone: Start: 12-15-2023 End: 12-15-2023 Departed Referred DO Lang Mcdonough Work Phone: [facility] Start: 08-21-2023 End: 08-21-2023 ambulatory [facility] Start: 06-03-2023 End: 06-03-2023 ambulatory [facility] Facility[facility] Start: 03-01-2019 End: 03-02-2019 Patient encounter procedure RAINA ONTIVEROS Facility:[facility] Procedures Date Procedure Procedure Detail Performing Clinician Start: 03-01-2019 ANESTH FACE/SKULL BONE SURG CORNEL NUR Start: 03-01-2019 TREAT LOWER JAW FRACTURE RAINA ONTIVEROS Immunizations Immunization Date Immunization Notes Care Provider Fa rachele 02-25-2019 tetanus toxoid, redu asher diphtheria toxoid, and acellular pertussis vaccine, adsorbed DO Lang Mcdonough Work Phone: [facility] Payers Date Payer Category Payer Self-pay 2022 Unknown [id number] 2019 Unknown [id number] 1965 Unknown [id number] 2.16.8 [id number] 1965 Unknown [id number] 2.16.8 [id number] 1965 Unknown [id number] 2.16.8 [id number] 1965 Unknown [id number] 2.16.8 [id number] Unknown [id number] 2.16.8 [id number] Unknown Erna BLANK/MUKUL [id number] Worker's Compensation [id number] Social History Date Type Detail Facility Start: 09-20-2021 Tobacco smoking stat us MAIS Never smoked tobacco (finding) [facility] Start: 1965 Sex Assigned At Male [facility] Evaluation note Note Date & Type Note Facility Evaluation note No assessment information availa ble [facility] Work Phone: Summary Purpose Family History No Family History Records FoundNo Family History Records FoundNo Family History Records Found Advance Directives No Advanced Directives Records Found Advance Directive Response Recorded Date/ Time Advance Directives No February 25 019 7:44pm Additional Source Comments (unrecognized sect ion and content) No Status Records FoundNo Status Records FoundNo Status Records Found INFORMATION SOURCE (unrecogn ized section and content) DATE CREATED AUTHOR 05/12/2019 [facility] DATE CREATED AUTHOR AUTHOR'S ORGANIZ ATION 12/18/[address] [facility] DATE CREATED AUTHOR AUTHOR'S ORGANIZ ATION 01/01/2024 [facility] Care Teams (unrecognized sec tion and content) Team Status: Inactive Member Role Status Dates Lang Mcdonough DO Attending Provider Active Start: December 15, 2023 End: December 15, 2023 Goals (unrecognized section and content) Goals may be documented in a n alternate section FOR RECORDS PERTAINING TO PATIENTS WHO ARE OR HAVE BEEN ENROLLED IN A CHEMICAL DEPENDENCY/SUBSTANCEABUSE PROGRAM, SOME INFORMATION MAY BE OMITTED. This clinical summary was aggregated from multiple sources. Caution should be exercised in using it in the provision of clinical care. This summary normalizes information from multiple sources, and as a consequence, information in this document may materially change the coding, format and clinical context of patient data. In addition, data may be omitted in some cases. CLINICAL DECISIONS SHOULD BE BASED ON THE PRIMARY CLINICAL RECORDS. [facility] [employer] provides no warranty or guarantee of the accuracy or completeness of information in this document.
--- NOTE | 2024-05-23 20:17 | XR_ITS ---
[address] [address] Patient Name: LANG HUBBARD MRN: [id number] date: 1965 Sex: M Assigned Patient Location: ER Current Patient Location: Accession/Order Number: [id number] Exam Date: 05/23/2024 20:35 Report Date: 05/23/2024 22:37 At the request of: NAWAF MARKER Procedure: XR chest 1V EXAM: XR chest 1V HISTORY: preop COMPARISON: 12/16/2023 FINDINGS/IMPRESSION: 1. Lungs are clear 2. No pneumothorax. No pleural effusion. 3. Heart size and mediastinal contours are normal 4. No acute osseous abnormality Electronically authenticated by: MIRIAN POOL Date: 05/23/2024 22:37
--- NOTE | 2024-05-23 20:17 | ECG_ITS ---
[facility] Test Date: 2024-05-23 Pat Name: LANG HUBBARD Department: Room: - Gender: Male Ride Attendant: : 1965 Requested By: [id number] Order Number: [id number] Reading MD: JANA ROTHMAN Measurements Intervals [place] Rate: 64 P: 55 WV: 154 QRS: 28 QRSD: 100 T: 50 QT: 398 QTc: 407 Interpretive Statements 1100 Sinus rhythm 9110 normal ECG Compared to ECG 12/15/2023 13:03:26 No significant changes Electronically Signed On 05-23-2024 21:55:36 EDT by JANA ROTHMAN
--- NOTE | 2024-05-23 20:18 | ED_ITS ---
HPI HPI - General Adult General Chief complaint: Skin/Abscess/Foreign Body Stated complaint: FOOD STUCK IN THROAT Time Seen by Provider: 05/23/24 20:04 Source: patient Mode of arrival: walk-in Limitations: no limitations History of Present Illness HPI narrative: This 58-year-old male presents for evaluation of a piece of pot roast stuck in his throat. The patient was eating dinner around 6:30 PM and suddenly was aware that he could not pass food that he was eating. Since that time he has been spitting up his secretions. He has a foreign body sensation at his manubrium area. He denies any jose enrique chest pain or shortness of breath. He has not been gagging. He tried using water and [place] to dislodge the foreign body without significant improvement. Related Data Home Medications ?Medication ?Instructions ?Recorded ?Confirmed aspirin 81 mg tablet,delayed 81 mg PO DAILY 12/15/23 12/15/23 release (Enteric Coated Aspirin) atorvastatin 40 mg tablet 40 mg PO DAILY 12/15/23 12/15/23 hydrochlorothiazide 25 mg tablet 25 mg PO DAILY 12/15/23 12/15/23 losartan 100 mg tablet (Cozaar) 100 mg PO DAILY 12/15/23 12/15/23 potassium chloride 10 mEq 20 meq PO DAILY 12/15/23 12/15/23 capsule,extended release Previous Rx's ?Medication ?Instructions ?Recorded ciprofloxacin HCl 500 mg tablet 500 mg PO BID 7 days #14 tabs 12/17/23 metronidazole 500 mg tablet 500 mg PO BID 7 days #14 tabs 12/17/23 oxycodone-acetaminophen 5 mg-325 1 tab PO Q6H PRN pain #14 tabs 12/17/23 mg tablet (Percocet) Allergies Allergy/AdvReac Type Severity Reaction Status Date / Time No Known Drug Allergies Allergy Verified 05/23/24 19:38 Opioid HPI Opioid Management Most Recent Opioid Data: Last Pain Scale 1 12/17/23 11:00 12/17/23 Last ORT Total Score 0 12/15/23 05:18 12/15/23 Last ORT Risk Category Low Risk 12/15/23 05:18 12/15/23 Review of Systems ROS Status of ROS 10 or more systems reviewed and unremark able except as noted in history and below [facility] Medical History (Updated 05/23/24 @ 20:57 by Ni Godfrey MD) Aortic stenosis due to bicuspid aortic valve ?Q23.0 - Congenital stenosis of aortic valve (ICD-10) ?Q23.1 - Congenital insufficiency of aortic valve (ICD-10) Hypokalemia ?E87.6 - Hypokalemia (ICD-10) Hyperlipidemia ?E78.5 - Hyperlipidemia, unspecified (ICD-10) Hypertension ?I10 - Essential (primary) hypertension (ICD-10) Broken jaw ?S02.609A - Fracture of mandible, unspecified, initial encounter for closed fracture (ICD-10) Hernia of abdominal wall ?K43.9 - Ventral hernia without obstruction or gangrene (ICD-10) Family History Father Family history of myocardial infarction Family history of hypertension Mother Family history of myocardial infarction Family history of hypertension Family history of diabetes mellitus Social History Within the past year, how often did you have a drink containing alcohol: never Within the past year, how often did you have six or more drinks on one occasion: never Score interpretation: A score less than 4 is consistent with normal alcohol consumption. 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 Highest level of school completed/degree received: 12th grade, no diploma Are you now , , , , never or living with a partner: In a typical week, how many times do you talk on the telephone with family, friends, or neighbors: once per week How often do you get together with friends or relatives: once per week How often do you attend rastafari or yazdanism services: never Do you belong to any clubs or organizations such as rastafari groups unions, fraternal or athletic groups, or school groups: yes Total score: 1 Score interpretation: A score of less than or equal to 1 indicates the most socially isolated. Little interest or pleasure in doing things: not at all Feeling down, depressed, or hopeless: not at all Feel stressed/tense/nervous/anxious/difficulty sleeping: not at all Gender Identity: male Exam Narrative Exam Narrative: Vital signs and Nursing Notes reviewed: Patient is afebrile with a normal pulse, blood pressure is elevated at 175/103, he is not hypoxic with pulse ox of 97% on room air General: Awake, alert, oriented, no acute distress, lying comfortably on the stretcher, speech is clear, he is intermittently spitting up clear saliva HEENT: Normocephalic atraumatic, mucous membranes are moist and pink, eyes are clear, normal conjunctiva, vision is grossly intact, posterior pharynx is normal in appearance without any notable visible foreign body Neck: Trachea is midline, no stridor appreciated Chest: Lungs are clear to auscultation with good air entry, there is no wheezing rhonchi or rales appreciated no accessory muscle use, patient is speaking in complete sentences-no chest wall tenderness to palpation CVS: Regular rate and rhythm S1-S2, no murmurs rubs or gallops, pulses are brisk and equal bilaterally ABD: Soft, nondistended, nontender, no rebound guarding or rigidity, bowel sounds are normal, no pulsatile masses appreciated Extremities: Moving all extremities, no lower extremity tenderness or swelling noted, negative Homans' sign, pulses are brisk and equal bilaterally Skin: Normal in appearance without rash,pallor, petechiae or purpura Neuro: No focal deficits Constitutional Vital Signs, click to edit/add: Last Vital Signs Temp 97.7 F 05/23/24 19:35 Pulse 57 L 05/23/24 19:35 Resp 18 05/23/24 19:35 BP 175/103 H 05/23/24 19:35 Pulse Ox 97 05/23/24 19:35 O2 Del Method Room Air 05/23/24 19:35 Course Vital Signs Vital signs: Vital Signs Temperature 97.7 F 05/23/24 19:35 Pulse Rate 57 L 05/23/24 19:35 Respiratory Rate 18 05/23/24 19:35 Blood Pressure 175/103 H 05/23/24 19:35 Pulse Oximetry 97 05/23/24 19:35 Oxygen Delivery Method Room Air 05/23/24 19:35 Temperature 97.7 F 05/23/24 19:35 Pulse Rate 57 L 05/23/24 19:35 Respiratory Rate 18 05/23/24 19:35 Blood Pressure 175/103 H 05/23/24 19:35 Pulse Oximetry 97 05/23/24 19:35 Oxygen Delivery Method Room Air 05/23/24 19:35 Medical Decision Making [facility] Narrative Medical decision making narrative: This 58-year-old male who is otherwise healthy presents for evaluation of a esophageal food bolus. The patient was eating pot roast around 6:30 PM when a piece of it became lodged in his esophagus. He is not having a difficulty breathing or swallowing but is unable to tolerate his secretions as they pull in his esophagus. He denies any chest pain or shortness of breath. His lungs are clear. An IV was placed and he was given a dose of IV glucagon. EKG is normal sinus rhythm. Chest x-ray was ordered and is negative for acute infiltrate, pneumothorax or other abnormal findings. After the glucagon he was given an oral challenge with Pepsi and was able to tolerate the Pepsi without any regurgitation. His symptoms have resolved. He will be discharged home at this time. ECG Data Attestation: I personally reviewed and interpreted this ECG as follows: (Sinus rhythm at 64 bpm, normal axis, normal intervals, no acute ST segment elevation or T wave inversion) Discharge Plan Discharge Chief Complaint: Skin/Abscess/Foreign Body Clinical Impression: Esophageal foreign body Patient Disposition: Home, Self-Care Time of Disposition Decision: 20:57 Condition: Good Prescriptions / Home Meds: No Action atorvastatin 40 mg tablet 40 mg PO DAILY potassium chloride 10 mEq capsule, extended release 20 meq PO DAILY losartan [Cozaar] 100 mg tablet 100 mg PO DAILY aspirin [Enteric Coated Aspirin] 81 mg tablet,delayed release (DR/EC) 81 mg PO DAILY hydrochlorothiazide 25 mg tablet 25 mg PO DAILY oxycodone-acetaminophen [Percocet] 5-325 mg tablet 1 tab PO Q6H PRN (Reason: pain) Qty: 14 0RF ciprofloxacin HCl 500 mg tablet 500 mg PO BID 7 Days Qty: 14 0RF metronidazole 500 mg tablet 500 mg PO BID 7 Days Qty: 14 0RF Print Language: Citizen Of [place] Instructions: Esophageal Foreign Body (ED) Referrals: Physician,Non-Staff, MD [Primary Care Provider] - 1 week
[2024-05-23] MEDS: GLUCAGON 1 MG/ML VIAL IV (20:43)
[2024-05-23 21:08] VITALS: BP 155/92; PULSE 58; O2SAT 98
== END 2024-05-23 21:10 | disposition home or self-care (01) ==
PROVIDERS: Emergency Provider Emergency Medicine
DX: T18.128A Food in esophagus causing other injury, initial encounter (principal); W44.F3XA Food entering into or through a natural orifice, initial encounter
CPT/HCPCS: 71045; 93005; 96374; 99285; J1610